=== PATIENT | female | born 1935 | race Caucasian/White ===

== ENCOUNTER → 2016-03-20 | Outpatient (CLI) | payer OTHER ==
[~2016-03-20] MED LIST: ALL60 PO; ASPI81TA28 PO; BCTCR/30 NAE; DILT-117 PO; ESTCR; ESTR0.3T PO; IPRA0.06 NAE; LISI-729 PO; LZL125; MIRA100T PO; MULT-513 PO; RSTOPS OP; SYN100 PO; ZOLE5INJ IV.
--- NOTE | 2016-03-20 16:41 | MAMMOGRAPHY REPORT ---
BILATERAL DIGITAL SCREENING MAMMOGRAM WITH CAD: 03/20/2016 CLINICAL HISTORY: Routine screening. Patient has no complaints. TECHNIQUE: Current study was also evaluated with a Computer Aided Detection (CAD) system. Bilatera l CC and MLO views were obtained. COMPARISON: Comparison is made to exams dated: 03/15/2015 mammogram, 02/17/2013 mammogram, 02/28/2014 mammogram, 01/28/2012 mammogram, 01/22/2011 mammogram, and 01/14/2010 mammogram - [facility]. BREAST COMPOSITION: There are scattered areas of fibroglandular density in both breasts. FINDINGS: No suspicious masses, calcifications, or areas of architectural distortion are noted in e ither breast. There has been no significant interval change compared to prior exams. Scattered bilat eral benign-appearing calcifications are not significantly changed. Circular markers jessica multiple bilateral moles. IMPRESSION: ACR BI-RADS CATEGORY 2: BENIGN There is no mammographic evidence of malignancy. A 1 year screening mammogram is recommended. The p atient will receive written notification of the results. Approximately 10% of breast cancers are not detected with mammography. A negative mammographic repor t should not delay biopsy if a clinically suggestive mass is present. Dalila Metcalf M.D. ah/:03/20/2016 15:24:41 Logistics Engineer: Annie POSADAS(Cale)(M), [facility] letter sent: Normal 1/2 BI-RADS Code: ACR BI-RADS Category 2: Benign
== END | disposition home or self-care (01) ==
LOC: C.MAMM 14:31
PROVIDERS: ATTEND Obstetrics & Gynecology
DX: Z12.31 Encounter for screening mammogram for malignant neoplasm of breast (principal)

== ENCOUNTER → 2016-03-26 | Outpatient (CLI) | payer OTHER | END | disposition home or self-care (01) | LOC: C.LABSPEC 12:37 | PROVIDERS: ATTEND Internal Medicine | DX: K58.9 Irritable bowel syndrome, unspecified (principal) ==

== ENCOUNTER → 2016-04-08 | Outpatient (CLI) | payer OTHER | END | disposition home or self-care (01) | LOC: C.MAMM 11:25 | PROVIDERS: ATTEND Internal Medicine | DX: M81.0 Age-related osteoporosis without current pathological fracture (principal) ==

== ENCOUNTER → 2016-05-14 | Day surgery (SDC) | payer OTHER ==
[~2016-05-14] VITALS: Ht 162.6 cm; Wt 54.0 kg
[~2016-05-14] MED LIST changes: +IBUPROFEN 200 MG TAB ONE; +IBUPROFEN 200 MG TAB PO SCH; +ZOLEDRONIC ACID INJ 5 MG in EMPTY BAG 0 ML IV SCH
[2016-05-14 14:20] VITALS: BP 140/71; PULSE 72; TEMP 36; O2SAT 98; Ht 162.6 cm; Wt 54.0 kg
[2016-05-14 14:41] LABS: CALCIUM 8.2 mg/dl (8.5-10.1); CREATININE 0.68 mg/dl (0.60-1.20)
== END | disposition home or self-care (01) ==
LOC: C.MTU 13:56
PROVIDERS: ATTEND Internal Medicine
DX: M81.0 Age-related osteoporosis without current pathological fracture (principal)

== ENCOUNTER → 2016-06-17 | Outpatient (CLI) | payer OTHER ==
[~2016-06-17] MED LIST changes: -BCTCR/30 NAE; -IBUPROFEN 200 MG TAB ONE; -IBUPROFEN 200 MG TAB PO SCH; -IPRA0.06 NAE; -ZOLEDRONIC ACID INJ 5 MG in EMPTY BAG 0 ML IV SCH
[2016-06-17 09:38] LABS: BASO % 1.5 %; BASO ABS # 0.11 K/uL (0-0.2); COMPLETE YES; EOS % 5.2 %; IG% 0.4 %; LYMPH % 29.4 %; LYMPH ABS # 2.21 K/uL (1.2-3.4); MEAN CELL VOLUME 91.3 fL (80-100); MEAN CORPUSCULAR HEMOGLOBIN 30.8 pg (25-34); MEAN CORPUSCULAR HGB CONC 33.7 g/dl (32-36); MONO % 11.3 %; NEUT % 52.2 %; PLATELET COUNT 374 K/uL (130-400); RED BLOOD COUNT 4.71 M/uL (4.2-5.4); WHITE BLOOD COUNT 7.51 K/uL (4.8-10.8)
[2016-06-17 09:59] LABS: BLOOD UREA NITROGEN 15 mg/dl (7-18); BUN/CREATININE RATIO 21.8 (10-20); CALCIUM 8.9 mg/dl (8.5-10.1); CARBON DIOXIDE 28 mmol/L (21-32); CHLORIDE 102 mmol/L (98-107); CHOLESTEROL 242 mg/dl (0-200); CREATININE 0.69 mg/dl (0.60-1.20); GLUCOSE 88 mg/dl (70-99); SODIUM 138 mmol/L (136-145)
[2016-06-17 10:02] LABS: ESTIMATED AVERAGE GLUCOSE 103 mg/dl; HA1C FLAG Normal (Normal)
[2016-06-17 10:14] LABS: CHOLESTEROL/HDL RATIO 2.4; HDL CHOLESTEROL 99 mg/dl; LDL CHOLESTEROL CALCULATED 127 mg/dl; TRIGLYCERIDES 79 mg/dl (0-150); VERY LOW DENSITY LIPOPROT CALC 16 mg/dl
--- NOTE | 2016-06-30 12:57 | CODING QUERY MEDICAL NECESSITY ---
CQSUPPORTING DIAGNOSIS NEEDED A supporting diagnosis is required for the test/procedure performed on this patient in order for us to be reimbursed by the patient's insurance. Please provide a supporting diagnosis for the following test/procedure listed below next to the test name along with your signature. *If there is no additional diagnosis for this patient that would support the following test/procedure please document that below next to the test/procedure. Test(s)/Procedure(s) that require a supporting diagnosis: DOS 06/17/16 GLYCATED HEMOGLOBIN Provider Signature: Date: Thank you Brigitte Garza Operation [employer] Drop Information Management Once completed, please kindly fax back to [phone] For questions please call [phone]
== END | disposition home or self-care (01) ==
LOC: C.LAB1850 08:05
PROVIDERS: ATTEND Internal Medicine
DX: Z00.00 Encounter for general adult medical examination without abnormal findings (principal); M81.0 Age-related osteoporosis without current pathological fracture; E78.00 Pure hypercholesterolemia, unspecified; R39.9 Unspecified symptoms and signs involving the genitourinary system

== ENCOUNTER → 2016-06-20 | Outpatient (CLI) | payer OTHER ==
[2016-06-20 16:54] LABS: MANUAL MICROSCOPIC REQUIRED? NO; REVIEW REQ? NO; URINE APPEARANCE TURBID (CLEAR); URINE BILIRUBIN NEG (NEG); URINE COLOR DK YELLOW; URINE EPITHELIAL CELL AUTO >30 /lpf (0-5); URINE NITRITE NEG (NEG); URINE PH 5.5 (4.5-7.5); URINE SPECIFIC GRAVITY 1.023 (1.000-1.030); UROBILINOGEN NEG (NEG)
--- NOTE | 2016-06-27 10:15 | CODING QUERY MEDICAL NECESSITY ---
CQSUPPORTING DIAGNOSIS NEEDED A supporting diagnosis is required for the test/procedure performed on this patient in order for us to be reimbursed by the patient's insurance. Please provide a supporting diagnosis for the following test/procedure listed below next to the test name along with your signature. *If there is no additional diagnosis for this patient that would support the following test/procedure please document that below next to the test/procedure. Test(s)/Procedure(s) that require a supporting diagnosis: DOS 06/20/16 URINE CULTURE TEST Provider Signature: Date: Thank you Brigitte Garza Health Information Management Once completed, please kindly fax back to [phone] For questions please call [phone]
== END | disposition home or self-care (01) ==
LOC: C.LAB1850 15:18
PROVIDERS: ATTEND Internal Medicine
DX: E78.00 Pure hypercholesterolemia, unspecified (principal); I10 Essential (primary) hypertension; N39.0 Urinary tract infection, site not specified

== ENCOUNTER → 2016-07-16 | Outpatient (CLI) | payer OTHER ==
[2016-07-16 15:29] LABS: URINE APPEARANCE CLEAR (CLEAR); URINE BILIRUBIN NEG (NEG); URINE COLOR YELLOW; URINE EPITHELIAL CELL AUTO 20-30 /lpf (0-5); URINE NITRITE NEG (NEG); URINE SPECIFIC GRAVITY 1.014 (1.000-1.030); UROBILINOGEN NEG (NEG)
[2016-07-16 15:34] LABS: MANUAL MICROSCOPIC REQUIRED? NO; REVIEW REQ? NO
== END | disposition home or self-care (01) ==
LOC: C.LAB1850 09:15
PROVIDERS: ATTEND Internal Medicine
DX: R39.9 Unspecified symptoms and signs involving the genitourinary system (principal)

== ENCOUNTER → 2016-07-18 | Outpatient (CLI) | payer OTHER | END | disposition home or self-care (01) | LOC: C.LABSPEC 10:50 | PROVIDERS: ATTEND Obstetrics & Gynecology | DX: N81.10 Cystocele, unspecified (principal) ==

== ENCOUNTER → 2016-08-28 | Outpatient (CLI) | payer OTHER ==
--- NOTE | 2016-08-28 10:09 | DIAGNOSTIC IMAGING REPORT ---
ULTRASOUND RIGHT UPPER QUADRANT ABDOMEN CLINICAL HISTORY: Right upper quadrant abdominal pain. COMPARISON STUDY: Abdominal CT dated 06/08/2013. TECHNIQUE: Real-time, grayscale, and color flow sonography of the right upper quadrant of the abdomen was performed. Images are reviewed in the transverse and longitudinal planes. FINDINGS: Liver: The liver is normal in size and echotexture. There is no intrahepatic biliary ductal dilatation. The main portal vein is patent. Gallbladder: The gallbladder is normal in appearance. No gallstones are identified. There is no gallbladder wall thickening or pericholecystic fluid. A sonographic Marion's sign is reportedly absent. The common bile duct measures up to 0.4 cm in diameter. Pancreas: Visualized portions of the pancreatic head and body are normal in appearance. Right kidney: Survey images of the right kidney demonstrate mild cortical atrophy. There is no hydronephrosis. Ascites: None. IMPRESSION: No acute sonographic abnormality is identified in the right upper quadrant. No gallstones are seen. Electronically signed by: Vargas Patel M.D. 08/28/2016 10:08 AM Dictated Date/Time: 08/28/2016 10:05 AM
== END | disposition home or self-care (01) ==
LOC: C.ULTR 09:37
PROVIDERS: ATTEND Physician Assistant
DX: R10.9 Unspecified abdominal pain (principal)

== ENCOUNTER → 2016-09-03 | Outpatient (CLI) | payer OTHER ==
[2016-09-03 14:59] LABS: URINE APPEARANCE CLEAR (CLEAR); URINE BILIRUBIN NEG (NEG); URINE COLOR YELLOW; URINE EPITHELIAL CELL AUTO 20-30 /lpf (0-5); URINE NITRITE POS (NEG); URINE PH 6.5 (4.5-7.5); URINE SPECIFIC GRAVITY 1.013 (1.000-1.030); UROBILINOGEN NEG (NEG)
[2016-09-03 15:06] LABS: MANUAL MICROSCOPIC REQUIRED? NO; REVIEW REQ? NO
== END | disposition home or self-care (01) ==
LOC: C.LABBC 12:17
PROVIDERS: ATTEND Obstetrics & Gynecology
DX: R39.9 Unspecified symptoms and signs involving the genitourinary system (principal)

== ENCOUNTER → 2016-09-19 | Outpatient (CLI) | payer OTHER ==
[2016-09-19 13:38] LABS: URINE APPEARANCE CLOUDY (CLEAR); URINE BILIRUBIN NEG (NEG); URINE COLOR YELLOW; URINE EPITHELIAL CELL AUTO >30 /lpf (0-5); URINE NITRITE NEG (NEG); UROBILINOGEN NEG (NEG)
[2016-09-19 13:44] LABS: MANUAL MICROSCOPIC REQUIRED? NO; REVIEW REQ? NO
== END | disposition home or self-care (01) ==
LOC: C.LABBC 10:57
PROVIDERS: ATTEND Obstetrics & Gynecology
DX: R39.9 Unspecified symptoms and signs involving the genitourinary system (principal)

== ENCOUNTER → 2016-10-23 | Outpatient (CLI) | payer OTHER | END | disposition home or self-care (01) | LOC: C.LABSPEC 17:33 | PROVIDERS: ATTEND Obstetrics & Gynecology | DX: E87.1 Hypo-osmolality and hyponatremia (principal) ==

== ENCOUNTER → 2017-01-26 | Outpatient (CLI) | payer OTHER ==
[2017-01-26 09:41] LABS: BASO % 0.9 %; BASO ABS # 0.07 K/uL (0-0.2); COMPLETE YES; EOS % 4.2 %; HEMATOCRIT 46.1 % (37-47); IG% 0.4 %; LYMPH % 37.2 %; MEAN CORPUSCULAR HEMOGLOBIN 30.3 pg (25-34); MEAN CORPUSCULAR HGB CONC 33.6 g/dl (32-36); MEAN PLATELET VOLUME 10.1 fL (7.4-10.4); MONO % 13.5 %; NEUT % 43.8 %; PLATELET COUNT 357 K/uL (130-400); RED BLOOD COUNT 5.12 M/uL (4.2-5.4); WHITE BLOOD COUNT 7.53 K/uL (4.8-10.8)
[2017-01-26 09:54] LABS: BLOOD UREA NITROGEN 18 mg/dl (7-18); BUN/CREATININE RATIO 28.1 (10-20); CALCIUM 8.7 mg/dl (8.5-10.1); CARBON DIOXIDE 26 mmol/L (21-32); CHLORIDE 100 mmol/L (98-107); CREATININE 0.65 mg/dl (0.60-1.20); GLUCOSE 78 mg/dl (70-99); POTASSIUM 3.5 mmol/L (3.5-5.1); SODIUM 134 mmol/L (136-145)
[2017-01-26 10:06] LABS: ALB/GLOB RATIO 0.9 (0.9-2); ALKALINE PHOSPHATASE 55 U/L (45-117); ALT/SGPT 23 U/L (12-78); AST/SGOT 19 U/L (15-37); CHOLESTEROL 262 mg/dl (0-200); CHOLESTEROL/HDL RATIO 2.4; HDL CHOLESTEROL 109 mg/dl; LDL CHOLESTEROL CALCULATED 136 mg/dl; TRIGLYCERIDES 87 mg/dl (0-150); VERY LOW DENSITY LIPOPROT CALC 17 mg/dl
[2017-01-28 13:33] LABS: GLIADIN DEAMIDATED IgA AB 2 UNITS (<20); GLIADIN DEAMIDATED IgG AB 3 UNITS (<20); RETICULIN IgA AB Negative (Negative)
== END | disposition home or self-care (01) ==
LOC: C.LAB1850 07:43
PROVIDERS: ATTEND Internal Medicine
DX: E78.00 Pure hypercholesterolemia, unspecified (principal)

== ENCOUNTER 2017-03-12 13:02 | Emergency (ER) | payer OTHER ==
[~2017-03-12] VITALS: Ht 162.6 cm; Wt 50.4 kg
[~2017-03-12 13:02] MED LIST changes: -RSTOPS OP; +RSTOPS OPB
[2017-03-12 13:05] VITALS: TEMP 36.8; Ht 162.6 cm; Wt 50.4 kg
--- NOTE | 2017-03-12 14:33 | EMERGENCY ROOM VISIT NOTE ---
History First contact with patient: 14:15 Chief Complaint: COUGH Stated Complaint: CONGESTION, UPPER BACK PAIN WHEN BREATHING Nursing Triage Summary: congestion and left ear infection since 02/23. was on abx. improved. pt now c/o left upper back pain with breathing. reports pain is still there with deep breathing. non productive cough. History of Present Illness The patient is a 81 year old female who presents to the Emergency Room with complaints of congestion and left upper back pain which began last night. The patient states on February 23, she was treated for otitis media and a sinus infection with an antibiotic which "started with a 'C'" for 10 days. She states she has seen her physician facilities assistant and her PCP office twice since this began. She states her upper respiratory infection symptoms have improved, however last evening, she began experiencing left-sided back pain, behind her shoulder blade, worse with breathing. She states she noticed it last night while she was brushing her teeth, however the discomfort lasted throughout the night. It has improved today, and she states her coughing and breathing have improved as well. She states the cough has been mildly productive of yellowish sputum. She denies any fever, nausea, vomiting, ongoing congestion or runny nose, temperature, body aches, dyspnea, chest pain, chest pressure, head or neck pain. She does report occasional chills. The symptoms do not worsen on exertion, however are only present with deep breathing. They're not reproducible with palpation. The patient did get her influenza vaccine this year. She did contact her PCP office, and was advised to come to the emergency department for evaluation, as her PCP did not have any openings until tomorrow. Review of Systems A complete 10 point review of systems was reviewed with the patient with pertinent positives and negatives as per history of present illness. All else were negative. Past Medical/Surgical History Hypothyroidism, osteoporosis, irritable bowel syndrome, arthritis, hypertension Family History No significant family history Social History Smoking Status: Never Smoker Alcohol Use: occasionally Drug Use: none Marital Status: Housing Status: lives with significant other Occupation Status: retired Current/Historical Medications Scheduled Aspirin (Aspirin Ec), 81 MG PO HS Cyclosporine (Restasis Eye Drops), 1 DROP OPB BID Dicyclomine Hcl (Dicyclomine Hcl), 10 MG PO BID Diltiazem Hcl Ext Rel (Tiazac), 300 MG PO DAILY Estradiol Vag 0.01% (Estrace Vag 0.01% ), 3XWK Estrogens, Conjugated (Premarin), 0.3 MG PO 3XWK Indapamide (Indapamide), 5XWK Levofloxacin (Levaquin), 1 TAB PO DAILY Levothyroxine (Synthroid *), 0.1 MG PO DAILY Lisinopril (Zestril), 5 MG PO DAILY Mirabegron (Myrbetriq Er), 50 MG PO HS Multivitamins/Minerals (Mvi With Minerals), 1 TAB PO DAILY Zoledronic Acid (Reclast), 1 DOSE IV. YEARLY Scheduled PRN Fexofenadine Hcl (Edda *), 60 MG PO DAILY PRN for ALLERGIES Physical Exam Vital Signs Date Time Temp Pulse Resp B/P (MAP) Pulse Ox O2 Delivery O2 Flow Rate FiO2 03/12/17 15:49 69 18 109/71 99 03/12/17 13:10 97 Room Air 03/12/17 13:05 36.8 74 18 126/73 97 Room Air Physical Exam VITALS: Vitals are noted on the nurse's note and reviewed by myself. Vital signs stable. GENERAL: This is an 81-year-old white female, in no acute distress, nondiaphoretic, well-developed well-nourished. SKIN: The skin was without rashes, erythema, edema, or bruising. There is no tenting of the skin. Capillary reflex less than 2 seconds. HEAD: Normocephalic atraumatic. EARS: External auditory canals clear, tympanic membranes pearly galloway without erythema or effusion bilaterally. EYES: Pupils equal round and reactive to light and accommodation. Conjunctivae without injection, sclerae without icterus. Extraocular movements intact. NOSE: Patent, turbinates without inflammation or discharge. No sinus tenderness. MOUTH: Mucous membranes moist. Tonsils are not enlarged. Pharynx without erythema or exudate. Uvula midline. Airway patent. Tongue does not deviate. NECK: Supple without nuchal rigidity. No lymphadenopathy. No thyromegaly. Cervical spine is nontender. No JVD. HEART: Regular rate and rhythm without murmurs gallops or rubs. LUNGS: Clear to auscultation bilaterally without wheezes, rales or rhonchi. No dullness to percussion. No retractions or accessory muscle use. ABDOMEN: Positive bowel sounds x 4. Normal tympanic percussion. Soft, nontender, without masses or organomegaly. Marion sign negative. No guarding or rebound tenderness. MUSCULOSKELETAL: No muscle atrophy, erythema, or edema noted. Full range of motion without joint tenderness in all extremities. No tenderness to palpation. Normal gait. Strength 5/5 throughout. NEURO: Patient was alert and oriented to person place and time. Normal sensation to light and sharp touch. Deep tendon reflexes 2+ throughout. No focal neurological deficits. Medical Decision & Procedures ER Provider Diagnostic Interpretation: CHEST 2 VIEWS ROUTINE CLINICAL HISTORY: cough, left chest pain COMPARISON STUDY: 08/16/2013 FINDINGS: The cardiac and mediastinal contours remain stable. Since the prior study, the patient has developed a 3 cm left midlung zone opacity, likely located in the left upper lobe. Also evident are right perihilar airspace opacities which were not present on the prior study. Given the history of cough and congestion, these may be inflammatory. Short-term radiographic follow-up subsequent to antibiotic therapy is recommended. The patient remains mildly hyperinflated. IMPRESSION: 1. Interval development of a 3 cm left midlung zone nodular opacity 2. Interval development of right perihilar airspace opacities 3. Although nonspecific, given the clinical history of cough and congestion these lesions may be inflammatory. Short-term radiographic follow-up subsequent to antibiotic therapy is recommended Electronically signed by: Jovi Rosenthal M.D. 03/12/2017 2:54 PM Dictated Date/Time: 03/12/2017 2:51 PM Medications Administered Medications (Trade) Dose Ordered Sig/Chitra Route Start Time Stop Time Status Last Admin Dose Admin Levofloxacin (Levaquin Tab) 750 mg NOW STAT PO 03/12/17 15:20 03/12/17 15:23 DC 03/12/17 15:45 750 MG ED Course The patient was seen and evaluated as above. Chest x-ray ordered and performed. I discussed the case with Dr. Lew, who did see and evaluate the patient. The patient will be treated for possible pneumonia. She was given her first dose of Levaquin here in the ED. Discharge instructions reviewed, the patient was discharged home in good condition. Medical Decision This is an 81-year-old female patient presents to the emergency department today complaining of cough and posterior back pain, only with deep breathing, and located near the left shoulder blade. The patient has been sick with cough , congestion, and an ear infection for the past 3 weeks. She was recently treated with clindamycin for these complaints. She states the back pain began last night, and was worse overnight at bedtime. Chest x-ray was significant for opacities in the left midlung and right perihilar space, which, with the patient's symptoms, is consistent with pneumonia. The patient will be treated with by mouth antibiotics at this time, as she overall does not appear ill. Dr. Lew did see and evaluate the patient, and is in agreement with the assessment and plan. The patient will follow up closely with her PCP, and she does have an appointment scheduled for tomorrow. Etiologies such as pneumonia, bronchitis, influenza, cardiac ischemia, aortic dissection, pulmonary embolism, pneumothorax, musculoskeletal, infections, gastrointestinal, as well as others were entertained. Medication Reconcilliation Current Medication List: was personally reviewed by me Blood Pressure Screening Patient's blood pressure: Normal blood pressure Impression Primary Impression: Pneumonia Departure Information Dispostion Home / Self-Care Condition GOOD Prescriptions Levofloxacin (LEVAQUIN) 750 Mg Tab 1 TAB PO DAILY for 5 Days, #5 TAB Prov: Bety Sousa PA-C 03/12/17 Referrals Sae Choudhury M.D. (PCP) Patient Instructions ED Pneumonia Adult, My [facility] Additional Instructions You were seen and evaluated in the emergency department today for a cough and left back pain. Chest x-ray was positive for pneumonia on the mid-left lung zone and opacities on the right lower lobe. You were prescribed Levaquin to be taken as directed. This is an antibiotic. All antibiotics have the potential to cause diarrhea. Stop this medication and contact a medical provider if you were to develop any significant adverse side effects including: wheezing, shortness of breath, passing out, vomiting, or a diffuse rash. Always take antibiotics as directed and COMPLETE the ENTIRE course regardless of the improvement of your symptoms. You may use OTC Tylenol and/or ibuprofen to help with pain. Please follow up with your primary care provider tomorrow for recheck and further evaluation. You should have a follow-up CXR performed in approximately 2-4 weeks for evaluation of the inflammatory changes in the lungs. Return to the emergency department for difficulty breathing, coughing up blood, worsening fever, chills, chest pain, or other concerning symptoms. Problem Qualifiers Primary Impression: Pneumonia Pneumonia type: due to unspecified organism Laterality: bilateral Lung location: lower lobe of lung Qualified Codes: J18.9 - Pneumonia, unspecified organism
--- NOTE | 2017-03-12 14:55 | DIAGNOSTIC IMAGING REPORT ---
CHEST 2 VIEWS ROUTINE CLINICAL HISTORY: cough, left chest pain COMPARISON STUDY: 08/16/2013 FINDINGS: The cardiac and mediastinal contours remain stable. Since the prior study, the patient has developed a 3 cm left midlung zone opacity, likely located in the left upper lobe. Also evident are right perihilar airspace opacities which were not present on the prior study. Given the history of cough and congestion, these may be inflammatory. Short-term radiographic follow-up subsequent to antibiotic therapy is recommended. The patient remains mildly hyperinflated. IMPRESSION: 1. Interval development of a 3 cm left midlung zone nodular opacity 2. Interval development of right perihilar airspace opacities 3. Although nonspecific, given the clinical history of cough and congestion these lesions may be inflammatory. Short-term radiographic follow-up subsequent to antibiotic therapy is recommended Electronically signed by: Jovi Rosenthal M.D. 03/12/2017 2:54 PM Dictated Date/Time: 03/12/2017 2:51 PM
[2017-03-12] MEDS ORDERED: DICY10CA12 PO (14:57)
[2017-03-12] MEDS ORDERED: LEVOFLOXACIN 750 MG TAB PO STA (15:20)
--- NOTE | 2017-03-12 15:20 | EMERGENCY ROOM VISIT NOTE ---
ED Visit Note First contact with patient: 14:15 Patient was seen by our PA/DIMENSIONAL INSPECTOR. I was involved in the patient's care and did evaluate the patient myself. I was involved in the care throughout the ER stay. The patient presents with cough. She also has had some discomfort she thought coming from her lungs. Chest film does show pneumonia. She is not hypoxic, she is not toxic, her lungs do sound clear on exam. She is being discharged on Levaquin. She will see her doctor tomorrow for a recheck and return here if worsening.
[2017-03-12] MEDS ORDERED: LEVO-18 PO (15:25)
[2017-03-12 15:49] VITALS: BP 109/71; PULSE 69; O2SAT 99
== END 2017-03-12 15:51 | disposition home or self-care (01) ==
LOC: C.EDB 13:04 → C.EDD 15:51
DX: J18.9 Pneumonia, unspecified organism (principal); E03.9 Hypothyroidism, unspecified; M81.0 Age-related osteoporosis without current pathological fracture; K58.9 Irritable bowel syndrome, unspecified; I10 Essential (primary) hypertension; M19.90 Unspecified osteoarthritis, unspecified site; Z79.82 Long term (current) use of aspirin; Z79.899 Other long term (current) drug therapy

== ENCOUNTER → 2017-03-20 | Outpatient (CLI) | payer OTHER ==
[~2017-03-20] MED LIST changes: +DICY10CA12 PO
--- NOTE | 2017-03-20 13:36 | DIAGNOSTIC IMAGING REPORT ---
CHEST 2 VIEWS ROUTINE CLINICAL HISTORY: J18.9 [id number] pneumonia COMPARISON STUDY: 03/12/2017 FINDINGS: Improved exam. The peripheral midlung density on the left is considerably diminished in size with a current maximum transverse dimension 2.7 cm with superior/inferior dimension The right perihilar infiltrative changes have diminished in terms of density could geographically similar in overall extent. Emphysematous change and chronic diaphragmatic scarring are unaltered. improved by 50%. This would indicate a 50-70% improvement in volume. IMPRESSION: Improved exam with a decrease in density and/or size of the parenchymal infiltrative changes in the left as well as right lung regions as described. Continued follow-up to ensure complete resolution is suggested. The above report was generated using voice recognition software. It may contain grammatical, syntax or spelling errors. Electronically signed by: Antonio Schreiber M.D. 03/20/2017 1:35 PM Dictated Date/Time: 03/20/2017 1:32 PM
== END | disposition home or self-care (01) ==
LOC: C.RAD1850 13:21
PROVIDERS: ATTEND Physician Assistant Medical
DX: J18.9 Pneumonia, unspecified organism (principal)

== ENCOUNTER → 2017-04-10 | Outpatient (CLI) | payer OTHER ==
--- NOTE | 2017-04-13 14:50 | MAMMOGRAPHY REPORT ---
BILATERAL DIGITAL SCREENING MAMMOGRAM TOMOSYNTHESIS WITH CAD: 04/10/2017 CLINICAL HISTORY: Routine screening. TECHNIQUE: Breast tomosynthesis in addition to standard 2D mammography was performed. Current study was also evaluated with a Computer Aided Detection (CAD) system. COMPARISON: Comparison is made to exams dated: 03/20/2016 mammogram, 03/15/2015 mammogram, 02/28/2014 ma mmogram, 02/17/2013 mammogram, 01/28/2012 mammogram, and 01/22/2011 mammogram - [facility]. BREAST COMPOSITION: There are scattered areas of fibroglandular density in both breasts. FINDINGS: No suspicious masses, calcifications, or areas of architectural distortion are noted in ei ther breast. There has been no significant interval change compared to prior exams. IMPRESSION: ACR BI-RADS CATEGORY 1: NEGATIVE There is no mammographic evidence of malignancy. A 1 year screening mammogram is recommended. The pa tient will receive written notification of the results. Approximately 10% of breast cancers are not detected with mammography. A negative mammographic report should not delay biopsy if a clinically suggestive mass is present. Dalila Metcalf M.D. ah/:04/10/2017 15:15:11 Mica Laminating Machine Feeder: Desmond POSADAS(Cale)(M), [facility] letter sent: Normal 1/2 BI-RADS Code: ACR BI-RADS Category 1: Negative
== END | disposition home or self-care (01) ==
LOC: C.MAMM 14:15
PROVIDERS: ATTEND Obstetrics & Gynecology
DX: Z12.31 Encounter for screening mammogram for malignant neoplasm of breast (principal)

== ENCOUNTER → 2017-04-24 | Outpatient (CLI) | payer OTHER ==
--- NOTE | 2017-04-24 15:06 | DIAGNOSTIC IMAGING REPORT ---
CHEST 2 VIEWS ROUTINE CLINICAL HISTORY: J18.9 Pneumonia COMPARISON STUDY: 03/20/2017 FINDINGS: The cardiac and mediastinal contours remain stable. Underlying emphysema is suspected. There is a stable linear peripheral left midlung zone opacity measuring 29 x 5 mm. There is a stable right midlung zone opacity. There is stable blunting of the right lateral costophrenic angle.[ IMPRESSION: No significant change from the preceding study. Stable left midlung zone opacity, likely representing a resolving pneumonia/postinflammatory scar. Stable right midlung zone opacity, also likely representing a resolving pneumonia/postinflammatory scar. Electronically signed by: Jovi Rosenthal M.D. 04/24/2017 3:04 PM Dictated Date/Time: 04/24/2017 3:00 PM
== END | disposition home or self-care (01) ==
LOC: C.RAD1850 14:53
PROVIDERS: ATTEND Physician Assistant Medical
DX: J18.9 Pneumonia, unspecified organism (principal)

== ENCOUNTER → 2017-06-29 | Outpatient (CLI) | payer OTHER ==
[2017-06-29 15:24] LABS: BASO % 0.6 %; BASO ABS # 0.06 K/uL (0-0.2); EOS % 1.3 %; EOS ABS # 0.13 K/uL (0-0.5); HEMATOCRIT 44.5 % (37-47); HEMOGLOBIN 15.7 g/dL (12.0-16.0); IG# 0.02 K/uL (0.00-0.02); LYMPH ABS # 2.16 K/uL (1.2-3.4); MEAN CELL VOLUME 87.1 fL (80-100); MEAN CORPUSCULAR HEMOGLOBIN 30.7 pg (25-34); MEAN CORPUSCULAR HGB CONC 35.3 g/dl (32-36); MEAN PLATELET VOLUME 9.5 fL (7.4-10.4); MONO ABS # 1.18 K/uL (0.11-0.59); NEUT % 63.9 %; NEUT ABS # 6.28 K/uL (1.4-6.5); PLATELET COUNT 357 K/uL (130-400); RED CELL DISTRIBUTION WIDTH CV 14.3 % (11.5-14.5); RED CELL DISTRIBUTION WIDTH SD 45.4 fL (36.4-46.3); WHITE BLOOD COUNT 9.83 K/uL (4.8-10.8)
[2017-06-29 15:57] LABS: BLOOD UREA NITROGEN 16 mg/dl (7-18); CALCIUM 8.8 mg/dl (8.5-10.1); CARBON DIOXIDE 26 mmol/L (21-32); CREATININE 0.74 mg/dl (0.60-1.20); GLUCOSE 106 mg/dl (70-99); SODIUM 130 mmol/L (136-145)
== END | disposition home or self-care (01) ==
LOC: C.LAB1850 14:38
PROVIDERS: ATTEND Internal Medicine
DX: E78.00 Pure hypercholesterolemia, unspecified (principal)

== ENCOUNTER → 2017-07-06 | Outpatient (CLI) | payer OTHER | END | disposition home or self-care (01) | LOC: C.LABSPEC 12:18 | PROVIDERS: ATTEND Obstetrics & Gynecology | DX: R39.9 Unspecified symptoms and signs involving the genitourinary system (principal); N76.0 Acute vaginitis ==

== ENCOUNTER → 2017-07-10 | Outpatient (CLI) | payer OTHER | END | disposition home or self-care (01) | LOC: C.LABBC 10:44 | PROVIDERS: ATTEND Obstetrics & Gynecology | DX: R39.9 Unspecified symptoms and signs involving the genitourinary system (principal) ==

== ENCOUNTER → 2017-10-06 | Outpatient (CLI) | payer OTHER | END | disposition home or self-care (01) | LOC: C.LABSPEC 13:15 | PROVIDERS: ATTEND Obstetrics & Gynecology | DX: N81.10 Cystocele, unspecified (principal); J18.9 Pneumonia, unspecified organism ==

== ENCOUNTER 2017-10-20 11:04 | Emergency (ER) | payer OTHER ==
[~2017-10-20] VITALS: Ht 162.6 cm; Wt 50.6 kg
[2017-10-20 11:08] VITALS: TEMP 36.4; Ht 162.6 cm; Wt 50.6 kg
[2017-10-20 11:33] VITALS: O2SAT 99
[2017-10-20] MEDS ORDERED: SYN100 PO (11:41)
[2017-10-20] MEDS ORDERED: SODIUM CHLORIDE 0.9% 1000ML 1,000 ML IV STA (11:44)
[2017-10-20 11:59] LABS: BASO % 0.5 %; BASO ABS # 0.04 K/uL (0-0.2); EOS % 0.7 %; EOS ABS # 0.06 K/uL (0-0.5); HEMATOCRIT 42.8 % (37-47); HEMOGLOBIN 14.9 g/dL (12.0-16.0); IG# 0.03 K/uL (0.00-0.02); LYMPH % 23.6 %; LYMPH ABS # 2.03 K/uL (1.2-3.4); MEAN CELL VOLUME 86.3 fL (80-100); MEAN CORPUSCULAR HGB CONC 34.8 g/dl (32-36); MEAN PLATELET VOLUME 9.8 fL (7.4-10.4); MONO % 9.3 %; NEUT % 65.6 %; NEUT ABS # 5.63 K/uL (1.4-6.5); PLATELET COUNT 389 K/uL (130-400); RED CELL DISTRIBUTION WIDTH CV 15.4 % (11.5-14.5); RED CELL DISTRIBUTION WIDTH SD 48.5 fL (36.4-46.3); WHITE BLOOD COUNT 8.59 K/uL (4.8-10.8)
--- NOTE | 2017-10-20 12:15 | EMERGENCY ROOM VISIT NOTE ---
History Report prepared by Herman: [facility] Under the Supervision of: Dr. Jackie Hoyt M.D. First contact with patient: 11:24 Chief Complaint: TACHYCARDIA Stated Complaint: HIGH PULSE READINGS Nursing Triage Summary: pt reports she checked bp when awoke this am had pulse of 150 then last couple times checked pulse was 91 and 92. called pcp told to come to ed denies any chest pain or sob, just feels tired History of Present Illness The patient is a 81 year old female who presents to the Emergency Room with complaints of resolved rapid pulse beginning this morning. The patient reports that this morning, she measured her pulse to be 150 bpm. She notes that she is unsure if the rhythm was regular or irregular. She states that she called her doctor and was told to report to the ER. She reports that her pulse has decreased since the first measurement, being measured at about 91 and 92 bpm for the past couple measurements. The patient denies chest pain or shortness of breath, but notes that she feels weak. She states that she ate yogurt and blueberries this morning. She reports that she regularly takes aspirin. She notes that she was experiencing diarrhea this morning. Source of History: patient Onset: this morning Position: other (heart) Symptom Intensity: 150 this morning Quality: other (high pulse) Timing: resolved Associated Symptoms: + diarrhea, + weakness, No chest pain, No SOB Review of Systems See HPI for pertinent positives & negatives. A total of 10 systems reviewed and were otherwise negative. Past Medical & Surgical Medical Problems: (1) Bronchitis (2) Hypertension (3) Osteoporosis (4) Stomach problems (5) Urinary problem Family History Cancer Diabetes mellitus Heart disease Hypertension Social History Smoking Status: Never Smoker Alcohol Use: occasionally Drug Use: none Marital Status: Housing Status: lives with significant other Occupation Status: retired Current/Historical Medications Scheduled Aspirin (Aspirin Ec), 81 MG PO HS Ciprofloxacin Tab (Cipro), 250 MG PO BID Dicyclomine Hcl (Dicyclomine Hcl), 10 MG PO BID Diltiazem Hcl Ext Rel (Tiazac), 300 MG PO DAILY Estrogens, Conjugated (Premarin), 0.3 MG PO 3XWK Indapamide (Indapamide), 5XWK Levothyroxine Sodium (Synthroid), 100 MCG PO DAILY Lisinopril (Zestril), 5 MG PO DAILY Mirabegron (Myrbetriq Er), 50 MG PO HS Multivitamins/Minerals (Mvi With Minerals), 1 TAB PO DAILY Potassium Ext Rel (Klor-Con), 20 MEQ PO DAILY Zoledronic Acid (Reclast), 1 DOSE IV. YEARLY Allergies Coded Allergies: POLLEN (Verified Allergy, Unknown, 10/20/17) Guaifenesin (Verified Adverse Reaction, Intermediate, nausea, 10/20/17) Hydrocodone (Verified Adverse Reaction, Intermediate, nausea, 10/20/17) Metronidazole (Verified Adverse Reaction, Intermediate, nausea, 10/20/17) Phenylephrine (Verified Adverse Reaction, Intermediate, nausea, 10/20/17) Physical Exam Vital Signs Date Time Temp Pulse Resp B/P (MAP) Pulse Ox O2 Delivery O2 Flow Rate FiO2 10/20/17 14:45 77 18 128/74 98 Room Air 10/20/17 13:53 78 18 148/84 98 Room Air 10/20/17 12:30 71 18 142/83 98 Room Air 10/20/17 11:33 99 Room Air 10/20/17 11:32 78 18 163/90 99 Room Air 10/20/17 11:31 77 10/20/17 11:08 36.4 88 18 154/85 98 Room Air Physical Exam Vital signs reviewed. General: Well-appearing female, in no significant distress. HEENT: No scleral icterus, PERRLA, neck supple. Atraumatic. Cardiovascular: Regular rate and rhythm, no extra sounds. Pulmonary: Clear to auscultation bilaterally, normal work of breathing. Abdomen: Soft, nontender, nondistended, positive bowel sounds. Musculoskeletal: Atraumatic, no peripheral edema. Neurologic: Patient awake alert and oriented x 3 Skin: Warm, dry, no rash Medical Decision & Procedures ER Provider Diagnostic Interpretation: Radiology results as stated below per my review and radiologist interpretation: CHEST ONE VIEW PORTABLE CLINICAL HISTORY: tachycardia dyspnea COMPARISON STUDY: 04/24/2017 FINDINGS: Mild emphysematous change. Diaphragms are smooth. Lungs are clear. IMPRESSION: No acute process. Mild emphysematous change. The above report was generated using voice recognition software. It may contain grammatical, syntax or spelling errors. Electronically signed by: Antonio Schreiber M.D. 10/20/2017 12:18 PM Dictated Date/Time: 10/20/2017 12:17 PM Laboratory Results 10/20/17 11:26 Red Blood Count 4.96, Mean Corpuscular Volume 86.3, Mean Corpuscular Hemoglobin 30.0, Mean Corpuscular Hemoglobin Concent 34.8, Mean Platelet Volume 9.8, Neutrophils (%) (Auto) 65.6, Lymphocytes (%) (Auto) 23.6, Monocytes (%) (Auto) 9.3, Eosinophils (%) (Auto) 0.7, Basophils (%) (Auto) 0.5, Neutrophils # (Auto) 5.63, Lymphocytes # (Auto) 2.03, Monocytes # (Auto) 0.80, Eosinophils # (Auto) 0.06, Basophils # (Auto) 0.04 10/20/17 11:26 Test 10/20/17 11:26 10/20/17 12:00 White Blood Count 8.59 K/uL (4.8-10.8) Red Blood Count 4.96 M/uL (4.2-5.4) Hemoglobin 14.9 g/dL (12.0-16.0) Hematocrit 42.8 % (37-47) Mean Corpuscular Volume 86.3 fL (80-100) Mean Corpuscular Hemoglobin 30.0 pg (25-34) Mean Corpuscular Hemoglobin Concent 34.8 g/dl (32-36) Platelet Count 389 K/uL (130-400) Mean Platelet Volume 9.8 fL (7.4-10.4) Neutrophils (%) (Auto) 65.6 % Lymphocytes (%) (Auto) 23.6 % Monocytes (%) (Auto) 9.3 % Eosinophils (%) (Auto) 0.7 % Basophils (%) (Auto) 0.5 % Neutrophils # (Auto) 5.63 K/uL (1.4-6.5) Lymphocytes # (Auto) 2.03 K/uL (1.2-3.4) Monocytes # (Auto) 0.80 K/uL (0.11-0.59) Eosinophils # (Auto) 0.06 K/uL (0-0.5) Basophils # (Auto) 0.04 K/uL (0-0.2) RDW Standard Deviation 48.5 fL (36.4-46.3) RDW Coefficient of Variation 15.4 % (11.5-14.5) Immature Granulocyte % (Auto) 0.3 % Immature Granulocyte # (Auto) 0.03 K/uL (0.00-0.02) Prothrombin Time 10.7 SECONDS (9.0-12.0) Prothromb Time International Ratio 1.0 (0.9-1.1) Activated Partial Thromboplast Time 28.0 SECONDS (21.0-31.0) Partial Thromboplastin Ratio 1.1 Anion Gap 12.0 mmol/L (3-11) Est Creatinine Clear Calc Drug Dose 57.8 ml/min Estimated GFR () 98.7 Estimated GFR (Non- 85.2 BUN/Creatinine Ratio 31.0 (10-20) Calcium Level 8.8 mg/dl (8.5-10.1) Phosphorus Level 3.3 mg/dl (2.5-4.9) Magnesium Level 1.9 mg/dl (1.8-2.4) Total Bilirubin 0.4 mg/dl (0.2-1) Direct Bilirubin 0.1 mg/dl (0-0.2) Aspartate Amino Transf (AST/SGOT) 24 U/L (15-37) Alanine Aminotransferase (ALT/SGPT) 21 U/L (12-78) Alkaline Phosphatase 106 U/L (45-117) Troponin I < 0.015 ng/ml (0-0.045) Total Protein 7.4 gm/dl (6.4-8.2) Albumin 3.3 gm/dl (3.4-5.0) Thyroid Stimulating Hormone (TSH) 0.364 uIu/ml (0.300-4.500) Urine Color YELLOW Urine Appearance CLOUDY (CLEAR) Urine pH 7.5 (4.5-7.5) Urine Specific [place] 1.014 (1.000-1.030) Urine Protein NEG (NEG) Urine Glucose (UA) NEG (NEG) Urine Ketones NEG (NEG) Urine Occult Blood NEG (NEG) Urine Nitrite NEG (NEG) Urine Bilirubin NEG (NEG) Urine Urobilinogen NEG (NEG) Urine Leukocyte Esterase MODERATE (NEG) Urine WBC (Auto) 10-30 /hpf (0-5) Urine RBC (Auto) 0-4 /hpf (0-4) Urine Hyaline Casts (Auto) 1-5 /lpf (0-5) Urine Epithelial Cells (Auto) >30 /lpf (0-5) Urine Bacteria (Auto) 2+ (NEG) Laboratory results per my review. Medications Administered Medications (Trade) Dose Ordered Sig/Chitra Route Start Time Stop Time Status Last Admin Dose Admin Sodium Chloride 1,000 ml @ 125 mls/hr Q8H STAT IV 10/20/17 11:44 10/20/17 15:25 DC 10/20/17 12:52 125 MLS/HR Potassium Chloride (Nguyen Ciel Elix) 40 meq NOW STAT PO 10/20/17 12:31 10/20/17 12:32 DC 10/20/17 12:52 40 MEQ Ciprofloxacin (Cipro Tab) 250 mg NOW STAT PO 10/20/17 14:58 10/20/17 15:00 DC 10/20/17 14:58 250 MG ECG Per My Interpretation Indication: other (elevated pulse) Rate (beats per minute): 86 Rhythm: normal sinus Findings: no acute ischemic change, no ectopy ED Course 1142: Past medical records reviewed. The patient was evaluated in room C9. A complete history and physical examination was performed. 1428: I reevaluated the patient and discussed findings with her. She verbalized agreement of the treatment plan. The patient was discharged home. Medical Decision Differential diagnosis: Etiologies such as premature contractions, electrolyte abnormality, cardiac dysrhythmia, thyroid dysfunction, pulmonary embolism, infection, gastrointestinal, as well as others were entertained. This patient was evaluated and appeared to be in no significant distress. Patient's physical exam is fairly unrevealing. IV access was obtained and she was placed on director risk. No arrhythmia or ectopy was appreciated during her stay. Laboratory work does reveal mild hyponatremia which is consistent with the patient's baseline. She is also noted to be mildly hypokalemic which is also a bit chronic. Given her complaints of tachycardia, I feel it is in her best interest to replete the potassium. She was given 40 mEq of p.o. potassium for level of 3.3. She was given a prescription for 20 mEq daily. The patient is on indapamide chronically. Patient was set up with a 24-hour Holter monitor through the cardiopulmonary lab. She was discharged to the care of her and will follow closely with Dr. Choudhury, her PCP. She will return to the ED for recurrence of symptoms or any medical concerns. Medication Reconcilliation Current Medication List: was personally reviewed by me Blood Pressure Screening Patient's blood pressure: Elevated blood pressure Blood pressure disposition: Referred to PCP Impression Primary Impression: Tachycardia Additional Impressions: Palpitations Hypokalemia Scribe Attestation The scribe's documentation has been prepared under my direction and personally reviewed by me in its entirety. I confirm that the note above accurately reflects all work, treatment, procedures, and medical decision making performed by me. Departure Information Dispostion Home / Self-Care Prescriptions Ciprofloxacin Tab (Cipro) 250 Mg Tab 250 MG PO BID for 5 Days, #10 TAB Prov: Jackie Hoyt M.D. 10/20/17 Potassium Ext Rel (Klor-Con) 20 Meq Tabcr 20 MEQ PO DAILY for 30 Days, #30 TAB Prov: Jackie Hoyt M.D. 10/20/17 Referrals Sae Choudhury M.D. (PCP) Forms HOME CARE DOCUMENTATION FORM, IMPORTANT VISIT INFORMATION, WORK / SCHOOL INSTRUCTIONS Patient Instructions My [facility] Additional Instructions Diagnosis: Tachycardia, palpitations Please drink plenty of clear fluids. Potassium 20 mEq daily. Cipro 250 mg twice daily for 5 days. Wear the Holter monitor for 48 hours as directed by the cardiopulmonary lab. Follow-up with Dr. Choudhury within 1-2 weeks for reevaluation and consideration of repeat laboratory work. Return to the emergency department for worsening of symptoms, chest pain, lightheadedness or any medical concerns. Problem Qualifiers
[2017-10-20 12:18] LABS: ALBUMIN 3.3 gm/dl (3.4-5.0); ALKALINE PHOSPHATASE 106 U/L (45-117); ALT/SGPT 21 U/L (12-78); AST/SGOT 24 U/L (15-37); BLOOD UREA NITROGEN 19 mg/dl (7-18); CALCIUM 8.8 mg/dl (8.5-10.1); CARBON DIOXIDE 23 mmol/L (21-32); CREATININE 0.62 mg/dl (0.60-1.20); GLUCOSE 96 mg/dl (70-99); POTASSIUM 3.3 mmol/L (3.5-5.1); SODIUM 132 mmol/L (136-145); TOTAL PROTEIN 7.4 gm/dl (6.4-8.2)
--- NOTE | 2017-10-20 12:19 | DIAGNOSTIC IMAGING REPORT ---
CHEST ONE VIEW PORTABLE CLINICAL HISTORY: tachycardia dyspnea COMPARISON STUDY: 04/24/2017 FINDINGS: Mild emphysematous change. Diaphragms are smooth. Lungs are clear. IMPRESSION: No acute process. Mild emphysematous change. The above report was generated using voice recognition software. It may contain grammatical, syntax or spelling errors. Electronically signed by: Antonio Schreiber M.D. 10/20/2017 12:18 PM Dictated Date/Time: 10/20/2017 12:17 PM
[2017-10-20] MEDS ORDERED: POTASSIUM CHLORIDE 20 MEQ/15 ML UDC PO STA (12:31)
[2017-10-20] MEDS ORDERED: POTA-639 PO (14:34)
[2017-10-20 14:45] VITALS: BP 128/74; PULSE 77; O2SAT 98
[2017-10-20] MEDS ORDERED: CIPROFLOXACIN 500 MG TAB PO STA (14:58)
[2017-10-20] MEDS ORDERED: CIPR1TAB11 PO (15:00)
--- NOTE | 2017-10-22 12:22 | Pharmacy Progress Note ---
ED Pharmacist Culture FollowUp Date of Service: Oct 22, 2017. Patient was sent home with a prescription for ciprofloxacin 250 mg BID x 5 days , which should cover the klebsiella growing from the patient's urine culture.
== END 2017-10-20 14:46 | disposition home or self-care (01) ==
LOC: C.EDB 11:05 → C.EDC 14:46
DX: R00.0 Tachycardia, unspecified (principal); R00.2 Palpitations; E87.6 Hypokalemia; I10 Essential (primary) hypertension; Z79.82 Long term (current) use of aspirin; Z79.899 Other long term (current) drug therapy; Z88.8 Allergy status to other drugs, medicaments and biological substances; Z88.5 Allergy status to narcotic agent; Z91.048 Other nonmedicinal substance allergy status

== ENCOUNTER 2018-04-04 16:06 | Inpatient (IN) ==
[2018-04-04] MEDS ORDERED: SODIUM CHLORIDE 0.9% 1000ML 1,000 ML IV SCH (17:00)
[2018-04-04 17:07] LABS: Basophils # (auto) 0.07 K/uL (0-0.2); Basophils % (auto) 0.5 %; Eosinophils # (auto) 0.07 K/uL (0-0.5); Eosinophils % (auto) 0.5 %; Hematocrit (blood only) 36.8 % (37-47); Hemoglobin 12.4 g/dL (12.0-16.0); Immature Granulocytes % (auto) 0.7 %; Lymphocytes # (auto) 2.79 K/uL (1.2-3.4); Lymphocytes % (auto) 18.4 %; Mean Corpuscular Hgb Conc 33.7 g/dL (32-36); Mean Corpuscular Volume 85.6 fL (80-100); Mean Platelet Volume 9.1 fL (7.4-10.4); Monocytes # (auto) 1.32 K/uL (0.11-0.59); Monocytes % (auto) 8.7 %; Neutrophils # (auto) 10.85 K/uL (1.4-6.5); Neutrophils % (auto) 71.2 %; Platelet Count 617 K/uL (130-400); RDW Coefficient of Variation 16.2 % (11.5-14.5); RDW Standard Deviation 50.5 fL (36.4-46.3)
--- NOTE | 2018-04-04 17:09 | XRay Report ---
XR chest 1V portable CLINICAL HISTORY: Chest Pain COMPARISON STUDY: Chest radiograph March 31, 2018. FINDINGS: There is no pneumothorax or pleural effusion. There is no consolidation to suggest pneumoni a. Cardiac size is normal. Mediastinal contours are normal. There is no evidence for pulmonary edema. The appearance of the chest is unchanged. IMPRESSION: No acute cardiopulmonary findings. Electronically signed by: Jeromy Mcleod M.D. 04/04/2018 5:08 PM
[2018-04-04 17:16] LABS: INR 1.1 (0.9-1.1); Partial Thromboplastin Time 26.1 Seconds (21.0-31.0); Prothrombin Time 11.1 Seconds (9.0-12.0)
[2018-04-04 17:23] LABS: Albumin Level 2.8 gm/dl (3.4-5.0); BUN Creatinine Ratio 46.8 (10-20); Calcium 8.5 mg/dl (8.5-10.1); Creatinine Clr Calc Pharmacy 39.2 ml/min; Est GFR (African American) 72.4; Est GFR (Non-African American) 62.5; Magnesium 1.8 mg/dl (1.8-2.4); Potassium 3.4 mmol/L (3.5-5.1)
[2018-04-04 17:26] LABS: Albumin Globulin Ratio 0.7 (0.9-2); Bilirubin,Total 0.6 mg/dl (0.2-1); Globulin 4.2 gm/dl (2.5-4.0)
[2018-04-04 17:35] LABS: iSTAT Creatinine 0.6 mg/dl (0.6-1.3); iSTAT Hemoglobin 10.9 g/dl (12.0-16.0); iSTAT Ionized Calcium 1.02 mmol/l (1.12-1.32); iSTAT Potassium 3.6 mEq/L (3.3-5.0)
[2018-04-04] MEDS ORDERED: cefTRIAXone SODIUM 1,000 MG/50 ML BAG IV STA (17:50)
[2018-04-04] MEDS ORDERED: IOVERSOL 100ml IV PRN (18:31)
--- NOTE | 2018-04-04 18:41 | Emergency Department Note ---
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 EMS states the patient had a total knee replacement on her right knee on March [address] Mendez. The patient states she has not really had an appetite since her operation. She states she has not been keeping up with her fluids. She states she felt weak this morning. The patient states she started to get a high heart rate 9 months ago. She states she had a heart monitor for 2 weeks. She notes she has not had a fast heart rate for a month. The patient states she checked her heart rate and blood pressure today. She states her HR was 137 the first time she checked it and then it went down to 90 after she checked again. She states her BP was way below 100 on both systolic and diastolic. She notes she has a little diarrhea today. She notes she had some SOB. The patient states she was worried so she wanted to go to the ED. Nursing staff states the patient had a 50/30 blood pressure in triage. The patient denies any pain, chest pain, abdominal pain, fevers, nausea, history of heart problems, pain with breathing, and kidney problems. The patient notes she urinated before coming to the ED. The patient notes she has a history of going into SVT. She states she takes antibiotics for her UTI. Home Medications Home Medications Medication Instructions Recorded Confirmed Type conjugated estrogens [Premarin] 0.3 mg PO 3XWK 10/29/17 04/04/18 History dicyclomine 10 mg PO BID 10/29/17 04/04/18 History indapamide 1.25 mg PO 5XWK 10/29/17 04/04/18 History levothyroxine [Synthroid] 100 mcg PO QAM 10/29/17 04/04/18 History lisinopril 10 mg PO QAM 10/29/17 04/04/18 History potassium chloride [Klor-Con M20] 20 meq PO QAM 10/29/17 04/04/18 History cranberry 1 dose PO DAILY 02/26/18 04/04/18 History cyclosporine [Restasis] 1 drp OPHTHALMIC (EYE) Q12H 02/26/18 04/04/18 History diltiazem HCl 300 mg PO QAM 02/26/18 04/04/18 History lactobacillus combination no.4 3,000 mmu cells PO DAILY 02/26/18 04/04/18 History [Probiotic] multivitamin 1 tab PO QAM 02/26/18 04/04/18 History aspirin [Ecotrin Low Strength] 81 mg PO BID 45 Days #90 tab 03/19/18 04/04/18 Rx acetaminophen [Pain Reliever] 1,000 mg PO Q6 03/31/18 04/04/18 History Saccharomyces boulardii [Florastor] 250 mg PO BID #20 cap 04/01/18 04/04/18 Rx cephalexin 500 mg PO BID 7 Days #14 cap 04/01/18 04/04/18 Rx Allergies Allergy/AdvReac Type Severity Reaction Status Date / Time pollen extracts Allergy Intermediate ITCHY Verified 04/04/18 17:12 EYES, SNEEZING, CONGESTION Sulfa (Sulfonamide Allergy Unknown CAN'T Verified 04/04/18 17:12 Antibiotics) REMEMBER guaifenesin AdvReac Intermediate nausea Verified 04/04/18 17:12 hydrocodone AdvReac Intermediate nausea Verified 04/04/18 17:12 metronidazole AdvReac Intermediate nausea Verified 04/04/18 17:12 phenylephrine AdvReac Intermediate nausea Verified 04/04/18 17:12 tramadol AdvReac Intermediate Nausea Verified 04/04/18 17:12 Past Med/Surg History Medical History Arthritis Chronic back pain Degenerative disc disease GERD (gastroesophageal reflux disease) Hearing deficit R ZAMORANO Hypertension Hypothyroidism IBS (irritable bowel syndrome) Osteoporosis Osteoporosis Pelvic fracture Presence of pessary SVT (supraventricular tachycardia) Spinal stenosis Urinary incontinence Surgical History H/O vein stripping History of appendectomy Taken out during hysterectomy History of colonoscopy History of left hip replacement History of surgical removal of pilonidal cyst History of tonsillectomy History of total abdominal hysterectomy and bilateral salpingo-oophorectomy History of total left hip arthroplasty Nausea and vomiting after administration of anesthetic agent Family History Mother Colon cancer Father CAD (coronary artery disease) Hypertension Father Family history of diabetes mellitus Other Family history non-contributory Social History marital status: Current Living Situation: Spouse Other Information That Helps Us Care for You: No Feels Safe at Home: Yes Safety Concerns: Feels Safe At This Time Smoking Status: Never smoker Second Hand Exposure: No Hx Alcohol Use: No Hx Substance Use: No Beliefs That Will Affect Care: None Preferred Language: Albanian Communication Ability: Effective Patient Information Coordinator Required: No Review of Systems See HPI for pertinent positives & negatives. and A total of 10 systems reviewed and were otherwise negative Physical Exam Vital Signs Vital Signs - 24 hr 04/04/18 16:29 04/04/18 18:51 04/04/18 19:57 Temperature 36.5 C Temperature Source Oral Sepsis Recent Fever Within 48 Hours No Sepsis Action Taken by Nursing No Action Required Pulse Rate - Lying Pulse Rate - Sitting Pulse Rate [Bilateral Apical] 84 Pulse Rate [Right Finger] Pulse Rhythm [Bilateral Apical] Pulse Rhythm [Right Finger] Regular Pulse Strength [Bilateral Apical] Pulse Strength [Right Finger] Normal Respiratory Rate 20 18 20 Respiratory Effort / Characteristics Non-Labored Non-Labored Non-Labored Spontaneous Respiratory Depth Normal Normal Normal Respiratory Pattern Regular Blood Pressure - Lying Blood Pressure - Sitting Blood Pressure 59/39 L Blood Pressure [Right Arm] 131/68 132/71 Blood Pressure Mean 45 Blood Pressure Mean [Right Arm] 89 91 Blood Pressure Position Sitting Blood Pressure Position [Right Arm] Sitting Pulse Oximetry 99 100 99 Oxygen Delivery Method Room Air Room Air Room Air 04/04/18 20:56 04/04/18 21:39 04/04/18 22:07 Temperature 36.8 C Temperature Source Oral Sepsis Recent Fever Within 48 Hours Sepsis Action Taken by Nursing Pulse Rate - Lying 84 Pulse Rate - Sitting 89 Pulse Rate [Bilateral Apical] 86 Pulse Rate [Right Finger] 88 87 Pulse Rhythm [Bilateral Apical] Regular Pulse Rhythm [Right Finger] Regular Pulse Strength [Bilateral Apical] Normal Pulse Strength [Right Finger] Normal Respiratory Rate 18 20 Respiratory Effort / Characteristics Non-Labored Spontaneous Respiratory Depth Normal Respiratory Pattern Regular Blood Pressure - Lying 105/67 Blood Pressure - Sitting 85/57 L Blood Pressure Blood Pressure [Right Arm] 110/75 117/67 Blood Pressure Mean Blood Pressure Mean [Right Arm] 86 83 Blood Pressure Position Blood Pressure Position [Right Arm] Lying Pulse Oximetry 99 100 Oxygen Delivery Method Room Air General: Non-ill appearing and pale older female in no acute distress. Patient was initally mildly sluggish and slumped in her wheelchair. HEENT: Normal cephalic atraumatic. Pupils are equal round and reactive to light. Extraocular movements are intact. Oropharynx is pink with moist mucous membranes. No swelling of the mouth lips or tongue. Neck: Supple with a midline trachea. No meningeal signs or stiffness, no JVD or bruits. No Stridor. Chest: Clear to auscultation bilaterally. No wheezes or rhonchi. No increased work of breathing. Heart: regular rate and rhythm. Abdomen: Soft nontender, nondistended without rebound guarding or rigidity. Extremities: No cyanosis clubbing or edema. No calf tenderness or assymetry Spine/Back. Non tender to palpation. No CVA tenderness Skin: Good turgor without rashes. Neurologic exam: Cranial nerves two through 12 are intact. Motor and sensation are intact and symmetrical throughout. Course 1640: Past medical records reviewed. The patient was evaluated in room A10, and a complete history and physical examination were performed. 1700: I reevaluated the patient. She is doing well. I ordered a CT scan for her chest and abdomen. 183: I reevaluated the patient. She is getting her CT scan. 1850: I reevaluated the patient. CT showed no PE. Patient is more comfortable. 1915: I reviewed the patient's case with Dr. Vale - [facility] Hospitalist. He will evaluate the patient for further management. Administered Medications Aspirin (Ecotrin Ectab) 81 mg PO BID [facility] Stop: 05/04/18 21:26 Last Admin: 04/04/18 22:47 Dose: Not Given Dicyclomine HCl (Bentyl) 10 mg PO BID [facility] Stop: 05/04/18 21:26 Last Admin: 04/04/18 22:49 Dose: 10 mg Heparin Sodium (Porcine) (Heparin Sodium (Porcine)) 5,000 units SQ Q12 [facility] Stop: 05/04/18 21:26 Last Admin: 04/04/18 22:47 Dose: Not Given Potassium Chloride/Sodium Chloride (Normal Saline W/20 Meq Kcl) 20 meq in 1, 000 mls @ 100 mls/hr IV .Q10H [facility] Stop: 05/04/18 21:26 Last Admin: 04/04/18 22:48 Dose: 100 mls/hr Miscellaneous (Order Awaiting Action) 1 ea N/A QS [facility] Stop: 05/05/18 00:00 Last Admin: 04/04/18 23:02 Dose: Not Given Saccharomyces Boulardii (Florastor) 250 mg PO BID [facility] Stop: 05/04/18 21:26 Last Admin: 04/04/18 22:49 Dose: 250 mg Discontinued Medications Sodium Chloride (Nss 1000ml) 1,000 mls @ 999 mls/hr IV .Q1H1M [facility] Stop: 04/04/18 18:00 Last Infusion: 04/04/18 18:24 Dose: 0 mls/hr Admin: 04/04/18 17:15 Dose: 999 mls/hr Ceftriaxone Sodium (Rocephin) 1,000 mg in 50 mls @ 100 mls/hr IV NOW STA Stop: 04/04/18 18:19 Last Infusion: 04/04/18 19:19 Dose: 0 mls/hr Admin: 04/04/18 18:50 Dose: 100 mls/hr Ioversol (Optiray 320 100ml) 93 ml IV ONCE PRN PRN Reason: Interaction Checking Stop: 04/08/18 18:30 Last Admin: 04/04/18 18:31 Dose: 93 ml Medical Decision Making Differential Diagnosis Differential Diagnosis includes: dehydration, cardiac disease, sepsis, anemia, post-operation complication, arrhythmia, and electrolyte or metabolic imbalance. Medical Records Attestation: I reviewed the patient's medical records. Home Medications Current Medication List: was personally reviewed by me Laboratory Data Attestation: I reviewed the patient's lab results. Result diagrams: 04/04/18 22:53 04/04/18 16:45 Lab Results 04/04/18 04/04/18 04/04/18 Range/Units 16:45 16:45 16:45 WBC 15.20 H (4.8-10.8) K/uL RBC 4.30 (4.2-5.4) M/uL Hgb 12.4 (12.0-16.0) g/dL POC Hgb (12.0-16.0) g/dl Hct 36.8 L (37-47) % POC Hct (37-47) % MCV 85.6 (80-100) fL MCH 28.8 (25-34) pg MCHC 33.7 (32-36) g/dL RDW Std Deviation 50.5 H (36.4-46.3) fL RDW Coeff of Brandan 16.2 H (11.5-14.5) % Plt Count 617 H (130-400) K/uL MPV 9.1 (7.4-10.4) fL Immature Gran % (Auto) 0.7 % Neut % (Auto) 71.2 % Lymph % (Auto) 18.4 % [place] % (Auto) 8.7 % Eos % (Auto) 0.5 % Baso % (Auto) 0.5 % Immature Gran # (Auto) 0.10 H (0.00-0.02) K/uL Neut # (Auto) 10.85 H (1.4-6.5) K/uL Lymph # (Auto) 2.79 (1.2-3.4) K/uL [place] # (Auto) 1.32 H (0.11-0.59) K/uL Eos # (Auto) 0.07 (0-0.5) K/uL Baso # (Auto) 0.07 (0-0.2) K/uL PT 11.1 (9.0-12.0) Seconds INR 1.1 (0.9-1.1) APTT 26.1 (21.0-31.0) Seconds PTT Ratio 1.0 POC Sodium (135-144) mEq/L Sodium 128 L (136-145) mmol/L POC Potassium (3.3-5.0) mEq/L Potassium 3.4 L (3.5-5.1) mmol/L POC Chloride (101-112) mEq/L Chloride 94 L (98-107) mmol/L Carbon Dioxide 22 (21-32) mmol/L POC Total CO2 (24-31) mEq/l Anion Gap 11.0 (3-11) POC Anion Gap (16-25) mmol/L POC BUN (7-18) mg/dl BUN 41 H (7-18) mg/dl Creatinine 0.87 (0.6-1.2) mg/dl POC Creatinine (0.6-1.3) mg/dl Est Cr Clr Drug Dosing 39.2 ml/min Est GFR ( Amer) 72.4 Est GFR (Non-Af Amer) 62.5 BUN/Creatinine Ratio 46.8 H (10-20) Glucose 116 H (70-99) mg/dl POC Glucose (other) (70-99) mg/dl Osmolality (280-300) mOsm/kg POC Lactic Acid Norberto (0.90-1.70) mmol/L Calcium 8.5 (8.5-10.1) mg/dl POC Ioniz Calcium [place] (1.12-1.32) mmol/l Magnesium 1.8 (1.8-2.4) mg/dl Total Bilirubin 0.6 (0.2-1) mg/dl AST 21 (15-37) U/L ALT 22 (12-78) U/L Alkaline Phosphatase 71 (45-117) U/L POC Troponin I (0-0.045) ng/ml Troponin I (0-0.045) ng/ml Total Protein 7.0 (6.4-8.2) gm/dl Albumin 2.8 L (3.4-5.0) gm/dl Globulin 4.2 H (2.5-4.0) gm/dl Albumin/Globulin Ratio 0.7 L (0.9-2) Lipase 206 (73-393) U/L Urine Osmolality (500-800) mOsm/kg 04/04/18 04/04/18 04/04/18 Range/Units 16:45 16:58 17:16 WBC (4.8-10.8) K/uL RBC (4.2-5.4) M/uL Hgb (12.0-16.0) g/dL POC Hgb (12.0-16.0) g/dl Hct (37-47) % POC Hct (37-47) % MCV (80-100) fL MCH (25-34) pg MCHC (32-36) g/dL RDW Std Deviation (36.4-46.3) fL RDW Coeff of Brandan (11.5-14.5) % Plt Count (130-400) K/uL MPV (7.4-10.4) fL Immature Gran % (Auto) % Neut % (Auto) % Lymph % (Auto) % [place] % (Auto) % Eos % (Auto) % Baso % (Auto) % Immature Gran # (Auto) (0.00-0.02) K/uL Neut # (Auto) (1.4-6.5) K/uL Lymph # (Auto) (1.2-3.4) K/uL [place] # (Auto) (0.11-0.59) K/uL Eos # (Auto) (0-0.5) K/uL Baso # (Auto) (0-0.2) K/uL PT (9.0-12.0) Seconds INR (0.9-1.1) APTT (21.0-31.0) Seconds PTT Ratio POC Sodium (135-144) mEq/L Sodium (136-145) mmol/L POC Potassium (3.3-5.0) mEq/L Potassium (3.5-5.1) mmol/L POC Chloride (101-112) mEq/L Chloride (98-107) mmol/L Carbon Dioxide (21-32) mmol/L POC Total CO2 (24-31) mEq/l Anion Gap (3-11) POC Anion Gap (16-25) mmol/L POC BUN (7-18) mg/dl BUN (7-18) mg/dl Creatinine (0.6-1.2) mg/dl POC Creatinine (0.6-1.3) mg/dl Est Cr Clr Drug Dosing ml/min Est GFR ( Amer) Est GFR (Non-Af Amer) BUN/Creatinine Ratio (10-20) Glucose (70-99) mg/dl POC Glucose (other) (70-99) mg/dl Osmolality 280 (280-300) mOsm/kg POC Lactic Acid Norberto 2.63 H (0.90-1.70) mmol/L Calcium (8.5-10.1) mg/dl POC Ioniz Calcium [place] (1.12-1.32) mmol/l Magnesium (1.8-2.4) mg/dl Total Bilirubin (0.2-1) mg/dl AST (15-37) U/L ALT (12-78) U/L Alkaline Phosphatase (45-117) U/L POC Troponin I < 0.03 (0-0.045) ng/ml Troponin I (0-0.045) ng/ml Total Protein (6.4-8.2) gm/dl Albumin (3.4-5.0) gm/dl Globulin (2.5-4.0) gm/dl Albumin/Globulin Ratio (0.9-2) Lipase (73-393) U/L Urine Osmolality (500-800) mOsm/kg 04/04/18 04/04/18 04/04/18 Range/Units 17:20 18:41 21:41 WBC (4.8-10.8) K/uL RBC (4.2-5.4) M/uL Hgb (12.0-16.0) g/dL POC Hgb 10.9 L (12.0-16.0) g/dl Hct (37-47) % POC Hct 32 L (37-47) % MCV (80-100) fL MCH (25-34) pg MCHC (32-36) g/dL RDW Std Deviation (36.4-46.3) fL RDW Coeff of Brandan (11.5-14.5) % Plt Count (130-400) K/uL MPV (7.4-10.4) fL Immature Gran % (Auto) % Neut % (Auto) % Lymph % (Auto) % [place] % (Auto) % Eos % (Auto) % Baso % (Auto) % Immature Gran # (Auto) (0.00-0.02) K/uL Neut # (Auto) (1.4-6.5) K/uL Lymph # (Auto) (1.2-3.4) K/uL [place] # (Auto) (0.11-0.59) K/uL Eos # (Auto) (0-0.5) K/uL Baso # (Auto) (0-0.2) K/uL PT (9.0-12.0) Seconds INR (0.9-1.1) APTT (21.0-31.0) Seconds PTT Ratio POC Sodium 129 L (135-144) mEq/L Sodium (136-145) mmol/L POC Potassium 3.6 (3.3-5.0) mEq/L Potassium (3.5-5.1) mmol/L POC Chloride 98 L (101-112) mEq/L Chloride (98-107) mmol/L Carbon Dioxide (21-32) mmol/L POC Total CO2 19 L (24-31) mEq/l Anion Gap (3-11) POC Anion Gap 17.0 (16-25) mmol/L POC BUN 33 H (7-18) mg/dl BUN (7-18) mg/dl Creatinine (0.6-1.2) mg/dl POC Creatinine 0.6 (0.6-1.3) mg/dl Est Cr Clr Drug Dosing ml/min Est GFR ( Amer) Est GFR (Non-Af Amer) BUN/Creatinine Ratio (10-20) Glucose (70-99) mg/dl POC Glucose (other) 109 H (70-99) mg/dl Osmolality (280-300) mOsm/kg POC Lactic Acid Norberto (0.90-1.70) mmol/L Calcium (8.5-10.1) mg/dl POC Ioniz Calcium [place] 1.02 L (1.12-1.32) mmol/l Magnesium (1.8-2.4) mg/dl Total Bilirubin (0.2-1) mg/dl AST (15-37) U/L ALT (12-78) U/L Alkaline Phosphatase (45-117) U/L POC Troponin I (0-0.045) ng/ml Troponin I < 0.015 (0-0.045) ng/ml Total Protein (6.4-8.2) gm/dl Albumin (3.4-5.0) gm/dl Globulin (2.5-4.0) gm/dl Albumin/Globulin Ratio (0.9-2) Lipase (73-393) U/L Urine Osmolality 527 (500-800) mOsm/kg 04/04/18 Range/Units 22:53 WBC (4.8-10.8) K/uL RBC (4.2-5.4) M/uL Hgb 9.6 L (12.0-16.0) g/dL POC Hgb (12.0-16.0) g/dl Hct 28.6 L (37-47) % POC Hct (37-47) % MCV (80-100) fL MCH (25-34) pg MCHC (32-36) g/dL RDW Std Deviation (36.4-46.3) fL RDW Coeff of Brandan (11.5-14.5) % Plt Count (130-400) K/uL MPV (7.4-10.4) fL Immature Gran % (Auto) % Neut % (Auto) % Lymph % (Auto) % [place] % (Auto) % Eos % (Auto) % Baso % (Auto) % Immature Gran # (Auto) (0.00-0.02) K/uL Neut # (Auto) (1.4-6.5) K/uL Lymph # (Auto) (1.2-3.4) K/uL [place] # (Auto) (0.11-0.59) K/uL Eos # (Auto) (0-0.5) K/uL Baso # (Auto) (0-0.2) K/uL PT (9.0-12.0) Seconds INR (0.9-1.1) APTT (21.0-31.0) Seconds PTT Ratio POC Sodium (135-144) mEq/L Sodium (136-145) mmol/L POC Potassium (3.3-5.0) mEq/L Potassium (3.5-5.1) mmol/L POC Chloride (101-112) mEq/L Chloride (98-107) mmol/L Carbon Dioxide (21-32) mmol/L POC Total CO2 (24-31) mEq/l Anion Gap (3-11) POC Anion Gap (16-25) mmol/L POC BUN (7-18) mg/dl BUN (7-18) mg/dl Creatinine (0.6-1.2) mg/dl POC Creatinine (0.6-1.3) mg/dl Est Cr Clr Drug Dosing ml/min Est GFR ( Amer) Est GFR (Non-Af Amer) BUN/Creatinine Ratio (10-20) Glucose (70-99) mg/dl POC Glucose (other) (70-99) mg/dl Osmolality (280-300) mOsm/kg POC Lactic Acid Norberto (0.90-1.70) mmol/L Calcium (8.5-10.1) mg/dl POC Ioniz Calcium [place] (1.12-1.32) mmol/l Magnesium (1.8-2.4) mg/dl Total Bilirubin (0.2-1) mg/dl AST (15-37) U/L ALT (12-78) U/L Alkaline Phosphatase (45-117) U/L POC Troponin I (0-0.045) ng/ml Troponin I (0-0.045) ng/ml Total Protein (6.4-8.2) gm/dl Albumin (3.4-5.0) gm/dl Globulin (2.5-4.0) gm/dl Albumin/Globulin Ratio (0.9-2) Lipase (73-393) U/L Urine Osmolality (500-800) mOsm/kg Imaging Data Radiologist's Impression: Radiology results as stated below per my review and the radiologist's interpretation: XR chest 1V portable CLINICAL HISTORY: Chest Pain COMPARISON STUDY: Chest radiograph March 31, 2018. FINDINGS: There is no pneumothorax or pleural effusion. There is no consolidation to suggest pneumonia. Cardiac size is normal. Mediastinal contours are normal. There is no evidence for pulmonary edema. The appearance of the chest is unchanged. IMPRESSION: No acute cardiopulmonary findings. Electronically signed by: Jeromy Mcleod M.D. 04/04/2018 5:[address] ANGIOGRAPHY OF THE CHEST, PULMONARY EMBOLUS PROTOCOL CLINICAL HISTORY: Chest pain. Recent surgery. Evaluate for pulmonary embolus. COMPARISON STUDY: Chest CT October 29, 2017. TECHNIQUE: Following IV administration of 93 mL of Optiray-320, helical axial images of the chest were obtained utilizing the pulmonary embolus protocol. Maximal intensity projections and sagittal and coronal reformats were viewed on an independent 3D workstation. IV contrast was administered without complication. Automated exposure control was utilized for the study. A dose lowering technique was utilized adhering to the principles of ALARA. CT DOSE: 459.20 mGy.cm FINDINGS: No pulmonary emboli are identified. There is no thoracic aortic dissection. The size of the heart is normal. There is extensive coronary artery calcification. Central airways are patent. There is no pneumothorax or pleural effusion. A few tiny pulmonary nodules are unchanged since CT of October 29, 2017. These are probably benign. There is no consolidation to suggest pneumonia. The abdomen and pelvis will be reported separate. IMPRESSION: 1. No pulmonary emboli identified. 2. No acute intrathoracic findings. 3. Extensive coronary artery calcification. Electronically signed by: Jeromy Mcleod M.D. 04/04/2018 6:[address] OF THE ABDOMEN AND PELVIS WITH CONTRAST CLINICAL HISTORY: hypotension COMPARISON STUDY: CT of the abdomen and pelvis June 08, 2013. TECHNIQUE: Following IV administration of 93 mL of Optiray-320, axial images of the abdomen and pelvis were obtained from the lung bases to the proximal femurs. Images were reviewed in the axial, sagittal, and coronal planes. IV contrast was administered without complication. Automated exposure control was utilized for the study. A dose lowering technique was utilized adhering to the principles of ALARA. FINDINGS: Please note that the chest CT will be reported separately. No pneumatosis, free air or portal venous gas is present. The liver, spleen, adrenal glands and pancreas are unremarkable. There is no hydronephrosis. There is a 6.4 cm left renal cyst. A subcentimeter right renal lesion favors a cyst. There is no biliary or pancreatic ductal dilatation. A pessary device is in place. Images of the pelvis are degraded by streak artifact from a left hip arthroplasty. There is no evidence for a bowel obstruction. Note is made of colonic diverticulosis without evidence for acute diverticulitis. Small fat- containing right ventral hernia is noted. No suspicious osseous lesion is noted. Old right pubic ring fracture is noted. Evaluation of the abdomen and pelvis is somewhat difficult given a paucity of fat. Apparent pericolonic infiltration is likely due to normal vessels. IMPRESSION: 1. No acute process within the abdomen or pelvis. 2. Extensive colonic diverticulosis without convincing evidence for acute diverticulitis. 3. No bowel obstruction. Electronically signed by: Jeromy Mcleod M.D. 04/04/2018 6:52 PM ECG Data Attestation: I personally reviewed and interpreted this ECG as follows: Indication: weakness Rate (beats per minute): 79 Rhythm: sinus rhythm (with poor baseline) Findings: no acute ischemic change and no ectopy Comparison ECG Date: from (04/10/18) Change: no significant change Blood Pressure Blood Pressure Findings: Normal blood pressure Blood Pressure Disposition: further management by hospitalist ALYSHA Camara This patient comes after having apparent tachycardia and hypotension at home. In triage she was noted to have a blood pressure in the 50s systolic and got sluggish and passed out in the wheelchair they immediately wheeled her back to room A1, our resuscitation bay. The nurse called for and I promptly ran in to see her. She did seem pale at the time we put her in a bed and established to large-bore IVs. Her blood pressure did come up. she had no chest pain or shortness of breath at the time on the vehicle monitor technician. she was in normal sinus in the 80s. Her blood pressure did come up and responded to fluids. She did have recent knee surgery. She was seen here the other day for similar type complaints and was treated for UTI also. I did give her a dose of IV Rocephin. Blood cultures were obtained lactic acid is mildly and she has an elevated white count. She looks so much better. I do not think is likely sepsis but that would still be in the differential and therefore was given the IV antibiotics with 1 gram IV Rocephin. I did a CAT scan of her chest and abdomen to rule out other pathology. When she was immediately brought back while I was resuscitated her Dr. Carrizales also did a MARIANO exam on her and there is no fluid or obvious abnormalities. CAT scan of her chest shows no PE or the other acute abnormalities. CAT scan of her abdomen does not show any acute abnormalities either. She has had no evidence of arrhythmia thus far. It is possible she was having arrhythmia earlier. Her cardiac biomarkers are not elevated. Given her severe hypotension and syncopal episode I do think she needs to be admitted for further inpatient treatment and evaluation. I have consulted Dr. Rubio to see her for these measures Impression & Plan Hypotension, Hyponatremia, Weakness, Near syncope Critical Care Time I have personally spent greater than 30 minutes of critical care time in the direct management of this patient. This includes bedside care, interpretation of diagnostic studies, and testing, discussion with consultants, patient, and family members, and other required patient management activities. This 30 minutes is in excess of all separately billable procedures. Critical Care Time: Yes Total Critical Care Time: 30 Discharge Plan Visit Data *Final* Discharge Date/Time: 04/04/18 20:57 Chief Complaint: Hypotension Stated Complaint: LOW BP,HIGH PULSE,WEAKNESS ED Provider: Robin Luong Discharge Problem: Hypotension, Hyponatremia, Weakness, Near syncope Patient Disposition: Admitted As Inpatient Discharge Instructions Interventions: ED Discharge Assessment Last Done: 04/04/18 20:57 The scribe's documentation has been prepared under my direction and personally reviewed by me in its entirety. I confirm that the note above accurately reflects all work, treatment, procedures, and medical decision making performed by me.
--- NOTE | 2018-04-04 18:45 | CT Scan Report ---
CT ANGIOGRAPHY OF THE CHEST, PULMONARY EMBOLUS PROTOCOL CLINICAL HISTORY: Chest pain. Recent surgery. Evaluate for pulmonary embolus. COMPARISON STUDY: Chest CT October 29, 2017. TECHNIQUE: Following IV administration of 93 mL of Optiray-320, helical axial images of the chest wer e obtained utilizing the pulmonary embolus protocol. Maximal intensity projections and sagittal and coronal reformats were viewed on an independent 3D workstation. IV contrast was administered without complication. Automated exposure control was utilized for the study. A dose lowering technique was utilized adhering to the principles of ALARA. CT DOSE: 459.20 mGy.cm FINDINGS: No pulmonary emboli are identified. There is no thoracic aortic dissection. The size of th e heart is normal. There is extensive coronary artery calcification. Central airways are patent. Ther e is no pneumothorax or pleural effusion. A few tiny pulmonary nodules are unchanged since CT of Sept emb2017. These are probably benign. There is no consolidation to suggest pneumonia. The abdomen and pelvis will be reported separate. IMPRESSION: 1. No pulmonary emboli identified. 2. No acute intrathoracic findings. 3. Extensive coronary artery calcification. Electronically signed by: Jeromy Mcleod M.D. 04/04/2018 6:43 PM
--- NOTE | 2018-04-04 18:53 | CT Scan Report ---
CT OF THE ABDOMEN AND PELVIS WITH CONTRAST CLINICAL HISTORY: hypotension COMPARISON STUDY: CT of the abdomen and pelvis June 08, 2013. TECHNIQUE: Following IV administration of 93 mL of Optiray-320, axial images of the abdomen and pelvi s were obtained from the lung bases to the proximal femurs. Images were reviewed in the axial, sagitt al, and coronal planes. IV contrast was administered without complication. Automated exposure contro l was utilized for the study. A dose lowering technique was utilized adhering to the principles of A CARMITA. FINDINGS: Please note that the chest CT will be reported separately. No pneumatosis, free air or port al venous gas is present. The liver, spleen, adrenal glands and pancreas are unremarkable. There is n o hydronephrosis. There is a 6.4 cm left renal cyst. A subcentimeter right renal lesion favors a cyst . There is no biliary or pancreatic ductal dilatation. A pessary device is in place. Images of the pe lvis are degraded by streak artifact from a left hip arthroplasty. There is no evidence for a bowel o bstruction. Note is made of colonic diverticulosis without evidence for acute diverticulitis. Small f at-containing right ventral hernia is noted. No suspicious osseous lesion is noted. Old right pubic r ing fracture is noted. Evaluation of the abdomen and pelvis is somewhat difficult given a paucity of fat. Apparent pericolonic infiltration is likely due to normal vessels. IMPRESSION: 1. No acute process within the abdomen or pelvis. 2. Extensive colonic diverticulosis without convincing evidence for acute diverticulitis. 3. No bowel obstruction. Electronically signed by: Jeromy Mcleod M.D. 04/04/2018 6:52 PM
--- NOTE | 2018-04-04 20:36 | History & Physical Report ---
Date of Service April 04, 2018 Assessment & Plan (1) Near syncope: Near syncope/hypotension/dehydration/hyponatremia/hypokalemia/constipation -- Cause of symptoms are likely multifactorial: Slow recovery from knee replacement surgery, decreased oral intake for both liquids and solids associated with relatively decreased activity and side effect of medications. With relatively low blood pressure, will hold medications including diltiazem, indapamide and lisinopril. Continue IV fluid rehydration. Follow serial CBC with differential, chemistry profile and magnesium levels. Present on Admission?: Yes (2) Generalized weakness: As above. Present on Admission?: Yes (3) Hyponatremia: Likely secondary to diuretic while having decreased oral intake. Present on Admission?: Yes (4) Hypokalemia: As above. Present on Admission?: Yes (5) Hypotension: Secondary to decreased intravascular volume associated dehydration. We will continue to hydrate with IV fluids. Patient will be placed on a monitored bed to follow blood pressure closely. Present on Admission?: Yes (6) SVT (supraventricular tachycardia): Patient has a history of supraventricular tachycardia. The tachycardia that she had at home and earlier in the hospital assessment was more physiologic and appropriate with decreased intravascular volume. With IV fluid rehydration, heart rate has been in the mid 80s to low 90s while in the ED. Present on Admission?: Yes (7) Hypothyroidism (acquired): Continue levothyroxine sodium at 100 mcg p.o. daily. Present on Admission?: Yes (8) Dehydration: As noted above, continue to hydrate with IV fluids. The patient does continue to have orthostatic symptoms, and will be placed on restricted walking, only with nurses. Present on Admission?: Yes History of Present Illness Chief Complaint: The patient presents to the emergency department with progressively worsening generalized weakness, and a low blood pressure and high heart rate earlier in the day prior to arrival. Primary Care Provider: Hossein Choudhury MD The patient is an 82-year-old female who underwent an uneventful right total knee arthroplasty by Dr. Mendez during admission from 03/18-03/20. She was discharged to home, and was undergoing physical therapy as directed. She reports that she had not yet regained her strength after surgery, and when she awoke this morning, she noted her heart rate was elevated and when she checked her heart rate was 137. Later on in the day, she checked her heart rate again it was down to 90, but she also noted that her systolic and diastolic blood pressures were both dropping as well. She also later became short of breath, and with the prescription his symptoms, presented to the emergency department for assessment. Nurses during triage at the emergency department noted that her blood pressure was 50/30, she was brought rapidly back into the emergency department, received aggressive fluid rehydration, and blood pressure rebounded into the upper 90s and low 100s systolic. She did however while in the emergency department, continued to show orthostatic symptoms. Allergies Allergy/AdvReac Type Severity Reaction Status Date / Time pollen extracts Allergy Intermediate ITCHY Verified 04/04/18 17:12 EYES, SNEEZING, CONGESTION Sulfa (Sulfonamide Allergy Unknown CAN'T Verified 04/04/18 17:12 Antibiotics) REMEMBER guaifenesin AdvReac Intermediate nausea Verified 04/04/18 17:12 hydrocodone AdvReac Intermediate nausea Verified 04/04/18 17:12 metronidazole AdvReac Intermediate nausea Verified 04/04/18 17:12 phenylephrine AdvReac Intermediate nausea Verified 04/04/18 17:12 tramadol AdvReac Intermediate Nausea Verified 04/04/18 17:12 Home Medications Home Medications Medication Instructions Recorded Confirmed Type conjugated estrogens [Premarin] 0.3 mg PO 3XWK 10/29/17 04/04/18 History dicyclomine 10 mg PO BID 10/29/17 04/04/18 History indapamide 1.25 mg PO 5XWK 10/29/17 04/04/18 History levothyroxine [Synthroid] 100 mcg PO QAM 10/29/17 04/04/18 History lisinopril 10 mg PO QAM 10/29/17 04/04/18 History potassium chloride [Klor-Con M20] 20 meq PO QAM 10/29/17 04/04/18 History cranberry 1 dose PO DAILY 02/26/18 04/04/18 History cyclosporine [Restasis] 1 drp OPHTHALMIC (EYE) Q12H 02/26/18 04/04/18 History diltiazem HCl 300 mg PO QAM 02/26/18 04/04/18 History lactobacillus combination no.4 3,000 mmu cells PO DAILY 02/26/18 04/04/18 History [Probiotic] multivitamin 1 tab PO QAM 02/26/18 04/04/18 History aspirin [Ecotrin Low Strength] 81 mg PO BID 45 Days #90 tab 03/19/18 04/04/18 Rx acetaminophen [Pain Reliever] 1,000 mg PO Q6 03/31/18 04/04/18 History Saccharomyces boulardii [Florastor] 250 mg PO BID #20 cap 04/01/18 04/04/18 Rx cephalexin 500 mg PO BID 7 Days #14 cap 04/01/18 04/04/18 Rx Past Med/Surg History Medical History Arthritis Chronic back pain Degenerative disc disease GERD (gastroesophageal reflux disease) Hearing deficit R ZAMORANO Hypertension Hypothyroidism IBS (irritable bowel syndrome) Osteoporosis Osteoporosis Pelvic fracture Presence of pessary SVT (supraventricular tachycardia) Spinal stenosis Urinary incontinence Surgical History H/O vein stripping History of appendectomy Taken out during hysterectomy History of colonoscopy History of left hip replacement History of surgical removal of pilonidal cyst History of tonsillectomy History of total abdominal hysterectomy and bilateral salpingo-oophorectomy History of total left hip arthroplasty Nausea and vomiting after administration of anesthetic agent Family History Mother Colon cancer Father CAD (coronary artery disease) Hypertension Father Family history of diabetes mellitus Other Family history non-contributory Social History marital status: Current Living Situation: Spouse Other Information That Helps Us Care for You: No Feels Safe at Home: Yes Safety Concerns: Feels Safe At This Time Smoking Status: Never smoker Second Hand Exposure: No Hx Alcohol Use: No Hx Substance Use: No Beliefs That Will Affect Care: None Preferred Language: Maltese Communication Ability: Effective Clinical Pharmacist Required: No Review of Systems The patient denies chest pain, cough, lower extremity swelling, sore throat, fevers, chills, sweats, nausea, vomiting, diarrhea , constipation, abdominal pain, pelvic pain, blood in urine or stool, dysuria, urinary frequency or urgency, headache, memory loss, loss of consciousness, rash, abnormal bruising or bleeding, weakness, numbness or tingling in arms or legs other than expected postop, generalized arthralgias or myalgias, back or neck pain, or night sweats. The review of systems is otherwise negative other than for that already noted above, and at least 10 systems have been reviewed. Physical Exam 2 Vital Signs (Past 24 Hours): Last Vital Signs Temp 36.5 C 04/04/18 16:29 Pulse 84 04/04/18 18:51 Resp 20 04/04/18 19:57 BP 132/71 04/04/18 19:57 Pulse Ox 99 04/04/18 19:57 Physical Exam: The patient is awake, alert and oriented �3, well developed and well nourished, normocephalic and atraumatic, lying in bed and in no acute distress. HEENT--PERRL, EOMI, mucous membranes and oropharynx dry. Neck--supple. No JVD. No bruits. Thyroid normal, trachea midline, no adenopathy. Heart--normal S1 and S2. No murmurs, rubs or gallops. Lungs--clear bilaterally, no respiratory distress, no accessory muscle use. Abdomen--normal bowel sounds and soft. Nontender. Nondistended. Extremities--no cyanosis or clubbing. No edema. There are good distal pulses b/ l. Dermatologic--normal skin turgor, normal color, no abnormal lymph nodes, no rash. Neurologic--cranial nerves II through XII grossly intact. Rheumatologic--normal range of motion. Psychiatric--normal affect. Results & Data Laboratory Results Laboratory Results WBC 15.20 K/uL (4.8-10.8) H 04/04/18 16:45 RBC 4.30 M/uL (4.2-5.4) 04/04/18 16:45 Hgb 9.6 g/dL (12.0-16.0) L 04/04/18 22:53 POC Hgb 10.9 g/dl (12.0-16.0) L 04/04/18 17:20 Hct 28.6 % (37-47) L 04/04/18 22:53 POC Hct 32 % (37-47) L 04/04/18 17:20 MCV 85.6 fL (80-100) 04/04/18 16:45 MCH 28.8 pg (25-34) 04/04/18 16:45 MCHC 33.7 g/dL (32-36) 04/04/18 16:45 RDW Std Deviation 50.5 fL (36.4-46.3) H 04/04/18 16:45 RDW Coeff of Brandan 16.2 % (11.5-14.5) H 04/04/18 16:45 Plt Count 617 K/uL (130-400) H 04/04/18 16:45 MPV 9.1 fL (7.4-10.4) 04/04/18 16:45 Immature Gran % (Auto) 0.7 % 04/04/18 16:45 Neut % (Auto) 71.2 % 04/04/18 16:45 Lymph % (Auto) 18.4 % 04/04/18 16:45 Casey % (Auto) 8.7 % 04/04/18 16:45 Eos % (Auto) 0.5 % 04/04/18 16:45 Baso % (Auto) 0.5 % 04/04/18 16:45 Immature Gran # (Auto) 0.10 K/uL (0.00-0.02) H 04/04/18 16:45 Neut # (Auto) 10.85 K/uL (1.4-6.5) H 04/04/18 16:45 Lymph # (Auto) 2.79 K/uL (1.2-3.4) 04/04/18 16:45 Casey # (Auto) 1.32 K/uL (0.11-0.59) H 04/04/18 16:45 Eos # (Auto) 0.07 K/uL (0-0.5) 04/04/18 16:45 Baso # (Auto) 0.07 K/uL (0-0.2) 04/04/18 16:45 PT 11.1 Seconds (9.0-12.0) 04/04/18 16:45 INR 1.1 (0.9-1.1) 04/04/18 16:45 APTT 26.1 Seconds (21.0-31.0) 04/04/18 16:45 PTT Ratio 1.0 04/04/18 16:45 POC Sodium 129 mEq/L (135-144) L 04/04/18 17:20 Sodium 128 mmol/L (136-145) L 04/04/18 16:45 POC Potassium 3.6 mEq/L (3.3-5.0) 04/04/18 17:20 Potassium 3.4 mmol/L (3.5-5.1) L 04/04/18 16:45 POC Chloride 98 mEq/L (101-112) L 04/04/18 17:20 Chloride 94 mmol/L (98-107) L 04/04/18 16:45 Carbon Dioxide 22 mmol/L (21-32) 04/04/18 16:45 POC Total CO2 19 mEq/l (24-31) L 04/04/18 17:20 Anion Gap 11.0 (3-11) 04/04/18 16:45 POC Anion Gap 17.0 mmol/L (16-25) 04/04/18 17:20 POC BUN 33 mg/dl (7-18) H 04/04/18 17:20 BUN 41 mg/dl (7-18) H 04/04/18 16:45 Creatinine 0.87 mg/dl (0.6-1.2) 04/04/18 16:45 POC Creatinine 0.6 mg/dl (0.6-1.3) 04/04/18 17:20 Est Cr Clr Drug Dosing 39.2 ml/min 04/04/18 16:45 Est GFR ( Amer) 72.4 04/04/18 16:45 Est GFR (Non-Af Amer) 62.5 04/04/18 16:45 BUN/Creatinine Ratio 46.8 (10-20) H 04/04/18 16:45 Glucose 116 mg/dl (70-99) H 04/04/18 16:45 POC Glucose (other) 109 mg/dl (70-99) H 04/04/18 17:20 Osmolality 280 mOsm/kg (280-300) 04/04/18 16:45 POC Lactic Acid Norberto 2.63 mmol/L (0.90-1.70) H 04/04/18 17:16 Calcium 8.5 mg/dl (8.5-10.1) 04/04/18 16:45 POC Ioniz Calcium Carolina 1.02 mmol/l (1.12-1.32) L 04/04/18 17:20 Magnesium 1.8 mg/dl (1.8-2.4) 04/04/18 16:45 Total Bilirubin 0.6 mg/dl (0.2-1) 04/04/18 16:45 AST 21 U/L (15-37) 04/04/18 16:45 ALT 22 U/L (12-78) 04/04/18 16:45 Alkaline Phosphatase 71 U/L (45-117) 04/04/18 16:45 POC Troponin I < 0.03 ng/ml (0-0.045) 04/04/18 16:58 Troponin I < 0.015 ng/ml (0-0.045) 04/04/18 21:41 Total Protein 7.0 gm/dl (6.4-8.2) 04/04/18 16:45 Albumin 2.8 gm/dl (3.4-5.0) L 04/04/18 16:45 Globulin 4.2 gm/dl (2.5-4.0) H 04/04/18 16:45 Albumin/Globulin Ratio 0.7 (0.9-2) L 04/04/18 16:45 Lipase 206 U/L (73-393) 04/04/18 16:45 Urine Osmolality 527 mOsm/kg (500-800) 04/04/18 18:41 Diagnostic Findings [place], [place] [phone] XRay Report Patient: Khris JUAREZ Date: 04/04/18 MR#: [id number]: [address] Acct ID:[id number]: Date: 1935City Zip: [place] [address] Age: 82Location: ED Sex: F Room/Bed: Att Phy: Diagnosis: LOW BP,HIGH PULSE,WEAKNESS Barb Phy: Sae Choudhury MDService Date: 04/04/18 Fam Phy: Interpreting Phy: Jeromy Mcleod MD Admit Phy: Ordering Phy: Robin Luong M.D. cc: ~ XR chest 1V portable CLINICAL HISTORY: Chest Pain COMPARISON STUDY: Chest radiograph March 31, 2018. FINDINGS: There is no pneumothorax or pleural effusion. There is no consolidation to suggest pneumonia. Cardiac size is normal. Mediastinal contours are normal. There is no evidence for pulmonary edema. The appearance of the chest is unchanged. IMPRESSION: No acute cardiopulmonary findings. Electronically signed by: Jeromy Mcleod M.D. 04/04/2018 5:08 PM Dictated: 04/04/181706 Transcribed: 04/04/181706 [place], [place] [phone] CT Scan Report Patient: Krhis JUAREZ Date: 04/04/18 MR#: [id number]: [address] Acct ID:[id number]: Date: [address] Zip: [place] [address] Age: 82Location: ED Sex: F Room/Bed: Att Phy: Diagnosis: LOW BP,HIGH PULSE,WEAKNESS Barb Phy: Sae Choudhury MDService Date: 04/04/18 Fam Phy: Interpreting Phy: Jeromy Mcleod MD Admit Phy: Ordering Phy: Robin Luong M.D. cc: ~ CT OF THE ABDOMEN AND PELVIS WITH CONTRAST CLINICAL HISTORY: hypotension COMPARISON STUDY: CT of the abdomen and pelvis June 08, 2013. TECHNIQUE: Following IV administration of 93 mL of Optiray-320, axial images of the abdomen and pelvis were obtained from the lung bases to the proximal femurs. Images were reviewed in the axial, sagittal, and coronal planes. IV contrast was administered without complication. Automated exposure control was utilized for the study. A dose lowering technique was utilized adhering to the principles of ALARA. FINDINGS: Please note that the chest CT will be reported separately. No pneumatosis, free air or portal venous gas is present. The liver, spleen, adrenal glands and pancreas are unremarkable. There is no hydronephrosis. There is a 6.4 cm left renal cyst. A subcentimeter right renal lesion favors a cyst. There is no biliary or pancreatic ductal dilatation. A pessary device is in place. Images of the pelvis are degraded by streak artifact from a left hip arthroplasty. There is no evidence for a bowel obstruction. Note is made of colonic diverticulosis without evidence for acute diverticulitis. Small fat- containing right ventral hernia is noted. No suspicious osseous lesion is noted. Old right pubic ring fracture is noted. Evaluation of the abdomen and pelvis is somewhat difficult given a paucity of fat. Apparent pericolonic infiltration is likely due to normal vessels. IMPRESSION: 1. No acute process within the abdomen or pelvis. 2. Extensive colonic diverticulosis without convincing evidence for acute diverticulitis. 3. No bowel obstruction. Electronically signed by: Jeromy Mcleod M.D. 04/04/2018 6:52 PM Dictated: 04/04/181842 Transcribed: 04/04/181842 [place], [place] [phone] CT Scan Report Patient: Khris JUAREZ Date: 04/04/18 MR#: [id number]: [address] Acct ID:[id number]: Date: 1935City Zip: [place] [address] Age: 82Location: ED Sex: F Room/Bed: Att Phy: Diagnosis: LOW BP,HIGH PULSE,WEAKNESS Barb Phy: Sae Choudhuryervice Date: 04/04/18 Fam Phy: Interpreting Phy: Jeromy Mcleod MD Admit Phy: Ordering Phy: Robin Luong M.D. cc: ~ CT ANGIOGRAPHY OF THE CHEST, PULMONARY EMBOLUS PROTOCOL CLINICAL HISTORY: Chest pain. Recent surgery. Evaluate for pulmonary embolus. COMPARISON STUDY: Chest CT October 29, 2017. TECHNIQUE: Following IV administration of 93 mL of Optiray-320, helical axial images of the chest were obtained utilizing the pulmonary embolus protocol. Maximal intensity projections and sagittal and coronal reformats were viewed on an independent 3D workstation. IV contrast was administered without complication. Automated exposure control was utilized for the study. A dose lowering technique was utilized adhering to the principles of ALARA. CT DOSE: 459.20 mGy.cm FINDINGS: No pulmonary emboli are identified. There is no thoracic aortic dissection. The size of the heart is normal. There is extensive coronary artery calcification. Central airways are patent. There is no pneumothorax or pleural effusion. A few tiny pulmonary nodules are unchanged since CT of October 29, 2017. These are probably benign. There is no consolidation to suggest pneumonia. The abdomen and pelvis will be reported separate. IMPRESSION: 1. No pulmonary emboli identified. 2. No acute intrathoracic findings. 3. Extensive coronary artery calcification. Electronically signed by: Jeromy Mcleod M.D. 04/04/2018 6:43 PM Dictated: 04/04/181832 Transcribed: 04/04/18 183 Medications Administered Home Medications Medication Instructions Recorded Confirmed conjugated estrogens [Premarin] 0.3 mg PO 3XWK 10/29/17 04/04/18 dicyclomine 10 mg PO BID 10/29/17 04/04/18 indapamide 1.25 mg PO 5XWK 10/29/17 04/04/18 levothyroxine [Synthroid] 100 mcg PO QAM 10/29/17 04/04/18 lisinopril 10 mg PO QAM 10/29/17 04/04/18 potassium chloride [Klor-Con M20] 20 meq PO QAM 10/29/17 04/04/18 cranberry 1 dose PO DAILY 02/26/18 04/04/18 cyclosporine [Restasis] 1 drp OPHTHALMIC (EYE) Q12H 02/26/18 04/04/18 diltiazem HCl 300 mg PO QAM 02/26/18 04/04/18 lactobacillus combination no.4 3,000 mmu cells PO DAILY 02/26/18 04/04/18 [Probiotic] multivitamin 1 tab PO QAM 02/26/18 04/04/18 acetaminophen [Pain Reliever] 1,000 mg PO Q6 03/31/18 04/04/18 Previous Rx's Medication Instructions Recorded aspirin [Ecotrin Low Strength] 81 mg PO BID 45 Days #90 tab 03/19/18 Saccharomyces boulardii [Florastor] 250 mg PO BID #20 cap 04/01/18 cephalexin 500 mg PO BID 7 Days #14 cap 04/01/18 Code Status & VTE Plan VTE Prophylaxis Plan VTE Prophylaxis will be ordered: Yes _ (1) Hypotension Hypotension type: unspecified hypotension type Trimester: Qualified Code(s) : I95.9 - Hypotension, unspecified
[2018-04-04] MEDS ORDERED: POLYETHYLENE (MIRALAX) 17 GM PACK PO PRN (21:27)
[2018-04-04] MEDS ORDERED: MAGNESIUM HYDROXIDE SUSP 30 ML UDC PO PRN (21:27)
[2018-04-04] MEDS ORDERED: ONDANSETRON INJ 2 MG/ML 2 ML VIAL IV PRN (21:27)
[2018-04-04] MEDS ORDERED: ALUMINUM/MAGNESIUM SUSP 30 ML UDC PO PRN (21:27)
[2018-04-04] MEDS ORDERED: HEPARIN SOD 5,000 UNIT/0.5 ML VIAL SQ SCH (21:27)
[2018-04-04] MEDS ORDERED: ASPIRIN 81 MG ECTAB PO SCH (21:27)
[2018-04-04] MEDS: NSS + 20MEQ KCL 20 MEQ/1,000 ML BAG IV SCH (22:48)
[2018-04-04] MEDS: DICYCLOMINE HCL 10 MG CAP PO SCH (22:49)
[2018-04-04] MEDS: SACCHAROMYCES BOULARDII 250 MG CAP PO SCH (22:49)
[2018-04-04] MEDS: RESTASIS~ORDER AWAITING ACTION SCH (23:02)
[2018-04-04 23:07] LABS: Hematocrit (blood only) 28.6 % (37-47); Hemoglobin 9.6 g/dL (12.0-16.0)
[2018-04-05] MEDS ORDERED: PANTOprazole 40 MG in DEXTROSE 5% 100 ML IV SCH
[2018-04-05] MEDS ORDERED: PANTOprazole 80 MG in DEXTROSE 5% 100 ML IV ONE (01:02)
[2018-04-05] MEDS ORDERED: PANTOPRAZOLE BOLUS/DRIP 1 EA IV STA (01:02)
[2018-04-05] MEDS: PANTOprazole 40 MG in DEXTROSE 5% 100 ML IV SCH ×5 (01:40→22:21)
[2018-04-05] MEDS: LEVOTHYROXINE SODIUM 100 MCG TABLET PO SCH (06:06)
[2018-04-05 07:01] LABS: Basophils # (auto) 0.03 K/uL (0-0.2); Basophils % (auto) 0.3 %; Eosinophils # (auto) 0.06 K/uL (0-0.5); Eosinophils % (auto) 0.7 %; Hematocrit (blood only) 23.7 % (37-47); Immature Granulocytes # (auto) 0.05 K/uL (0.00-0.02); Immature Granulocytes % (auto) 0.6 %; Lymphocytes # (auto) 2.49 K/uL (1.2-3.4); Lymphocytes % (auto) 27.4 %; Mean Corpuscular Hgb Conc 33.8 g/dL (32-36); Mean Corpuscular Volume 84.3 fL (80-100); Mean Platelet Volume 8.7 fL (7.4-10.4); Monocytes # (auto) 0.89 K/uL (0.11-0.59); Monocytes % (auto) 9.8 %; Neutrophils # (auto) 5.57 K/uL (1.4-6.5); Neutrophils % (auto) 61.2 %; Platelet Count 437 K/uL (130-400); RDW Coefficient of Variation 16.3 % (11.5-14.5); Red Blood Count 2.81 M/uL (4.2-5.4); White Blood Count 9.09 K/uL (4.8-10.8)
[2018-04-05 07:09] LABS: INR 1.1 (0.9-1.1); Partial Thromboplastin Time 25.4 Seconds (21.0-31.0); Prothrombin Time 10.9 Seconds (9.0-12.0)
[2018-04-05 07:21] LABS: RBC Morphology Unremarkable
[2018-04-05 07:45] LABS: Albumin Globulin Ratio 0.8 (0.9-2); Albumin Level 2.2 gm/dl (3.4-5.0); BUN Creatinine Ratio 67.9 (10-20); Bilirubin,Total 0.4 mg/dl (0.2-1); Calcium 7.3 mg/dl (8.5-10.1); Creatinine Clr Calc Pharmacy 62.1 ml/min; Globulin 2.9 gm/dl (2.5-4.0); Potassium 3.1 mmol/L (3.5-5.1); Total Protein 5.1 gm/dl (6.4-8.2)
[2018-04-05] MEDS: NSS + 20MEQ KCL 20 MEQ/1,000 ML BAG IV SCH ×2 (08:38→20:51)
[2018-04-05] MEDS: DICYCLOMINE HCL 10 MG CAP PO SCH ×2 (08:40→22:21)
[2018-04-05] MEDS: dilTIAZem HCL 300 MG CAPCR PO SCH (08:40)
[2018-04-05] MEDS: ACETAMINOPHEN 500 MG TAB PO SCH ×3 (08:40→22:21)
[2018-04-05] MEDS ORDERED: NON-FORMULARY MEDICATION (Lactobacillus Combination No.4 [Probiotic] 3,000 mmu cells) PO SCH (09:00)
[2018-04-05] MEDS ORDERED: CRANBERRY PO SCH (09:00)
[2018-04-05] MEDS: MULTIVITAMIN TAB PO SCH (12:40)
[2018-04-05] MEDS: POTASSIUM CHLORIDE 20 MEQ TABCR PO SCH (12:40)
[2018-04-05] MEDS: SACCHAROMYCES BOULARDII 250 MG CAP PO SCH ×2 (12:40→22:21)
[2018-04-05] MEDS: RESTASIS~ORDER AWAITING ACTION SCH ×3 (12:41→23:32)
--- NOTE | 2018-04-05 14:24 | Consultation Report ---
DATE OF CONSULTATION: 04/05/2018 GI CONSULT NOTE REASON FOR EVALUATION: Rectal bleeding. HISTORY OF PRESENT ILLNESS: The patient is an 82-year-old status post right knee replacement in late February by Dr. Mendez. The patient normally takes a baby aspirin once a day, but since her knee replacement surgery, she has been taking 2 baby aspirin a day. She has not had any nausea or vomiting or abdominal pain. No previous history of peptic ulcer disease or GI bleeding, but presented to the hospital yesterday with weakness and near syncope. She was noted to be tachycardic and hypotensive with low sodium and potassium. She was hospitalized and placed on IV fluids, and since being hospitalized, she had a large melenic stool followed by [address] scan of the abdomen was performed and showed a significant colonic diverticulosis, but no other abnormalities. GI consultation has been requested. PAST MEDICAL HISTORY: Remarkable for history of supraventricular tachycardia, hypothyroidism. ALLERGIES: SULFA, GUAIFENESIN, HYDROCODONE, METRONIDAZOLE, PHENYLEPHRINE AND TRAMADOL. MEDICATIONS: Premarin, dicyclomine, indapamide, Synthroid, lisinopril, Klor-Con, cranberry, Restasis, diltiazem, probiotic, multiple vitamin, 2 baby aspirin a day, acetaminophen, Florastor probiotic and cephalexin. FAMILY HISTORY: Mother of colon cancer. Father of coronary artery disease. Other family members have diabetes. SOCIAL HISTORY: The patient is . She lives with her spouse. Does not smoke, does not drink any alcohol. REVIEW OF SYSTEMS: Positive for mild right knee pain and fatigue. PHYSICAL EXAMINATION: GENERAL: The patient appears in no acute distress. VITAL SIGNS: Blood pressure is 132/71, pulse 84, room air saturation 99%. ABDOMEN: Shows low transverse scar. The abdomen is soft. There are no masses, tenderness, or hepatosplenomegaly. EXTREMITIES: Showed a scar over the right knee. NECK: Supple. LABORATORY DATA: Hemoglobin is 8.0, down from 13 at the time of her surgery on March 19. IMPRESSION: The patient most likely has an upper GI bleed from peptic ulcer from taking aspirin. The patient has been started on pantoprazole and n.p.o. I plan on proceeding with an EGD today for further evaluation.
--- NOTE | 2018-04-05 14:37 | History & Physical Report ---
Date of Service April 05, 2018 History of Present Illness Chief Complaint: Melena Primary Care Provider: Hossein Choudhury MD For EGD Allergies Allergy/AdvReac Type Severity Reaction Status Date / Time pollen extracts Allergy Intermediate ITCHY Verified 04/04/18 17:12 EYES, SNEEZING, CONGESTION Sulfa (Sulfonamide Allergy Unknown CAN'T Verified 04/04/18 17:12 Antibiotics) REMEMBER guaifenesin AdvReac Intermediate nausea Verified 04/04/18 17:12 hydrocodone AdvReac Intermediate nausea Verified 04/04/18 17:12 metronidazole AdvReac Intermediate nausea Verified 04/04/18 17:12 phenylephrine AdvReac Intermediate nausea Verified 04/04/18 17:12 tramadol AdvReac Intermediate Nausea Verified 04/04/18 17:12 Home Medications Home Medications Medication Instructions Recorded Confirmed Type conjugated estrogens [Premarin] 0.3 mg PO 3XWK 10/29/17 04/04/18 History dicyclomine 10 mg PO BID 10/29/17 04/04/18 History indapamide 1.25 mg PO 5XWK 10/29/17 04/04/18 History levothyroxine [Synthroid] 100 mcg PO QAM 10/29/17 04/04/18 History lisinopril 10 mg PO QAM 10/29/17 04/04/18 History potassium chloride [Klor-Con M20] 20 meq PO QAM 10/29/17 04/04/18 History cranberry 1 dose PO DAILY 02/26/18 04/04/18 History cyclosporine [Restasis] 1 drp OPHTHALMIC (EYE) Q12H 02/26/18 04/04/18 History diltiazem HCl 300 mg PO QAM 02/26/18 04/04/18 History lactobacillus combination no.4 3,000 mmu cells PO DAILY 02/26/18 04/04/18 History [Probiotic] multivitamin 1 tab PO QAM 02/26/18 04/04/18 History aspirin [Ecotrin Low Strength] 81 mg PO BID 45 Days #90 tab 03/19/18 04/04/18 Rx acetaminophen [Pain Reliever] 1,000 mg PO Q6 03/31/18 04/04/18 History Saccharomyces boulardii [Florastor] 250 mg PO BID #20 cap 04/01/18 04/04/18 Rx cephalexin 500 mg PO BID 7 Days #14 cap 04/01/18 04/04/18 Rx Past Med/Surg History Medical History Arthritis Chronic back pain Degenerative disc disease GERD (gastroesophageal reflux disease) Hearing deficit R ZAMORANO Hypertension Hypothyroidism IBS (irritable bowel syndrome) Osteoporosis Osteoporosis Pelvic fracture Presence of pessary SVT (supraventricular tachycardia) Spinal stenosis Urinary incontinence Surgical History H/O vein stripping History of appendectomy Taken out during hysterectomy History of colonoscopy History of left hip replacement History of surgical removal of pilonidal cyst History of tonsillectomy History of total abdominal hysterectomy and bilateral salpingo-oophorectomy History of total left hip arthroplasty Nausea and vomiting after administration of anesthetic agent Family History Mother Colon cancer Father CAD (coronary artery disease) Hypertension Father Family history of diabetes mellitus Other Family history non-contributory Social History marital status: Current Living Situation: Spouse Other Information That Helps Us Care for You: No Feels Safe at Home: Yes Safety Concerns: Feels Safe At This Time Smoking Status: Never smoker Second Hand Exposure: No Hx Alcohol Use: No Hx Substance Use: No Beliefs That Will Affect Care: None Communication Ability: Effective Physical Exam 2 Vital Signs (Past 24 Hours): Last Vital Signs Temp 36.9 C 04/05/18 12:01 Pulse 79 04/05/18 12:01 Resp 18 04/05/18 12:01 BP 121/64 04/05/18 12:01 Pulse Ox 99 04/05/18 12:01 Constitutional: well developed and well nourished Respiratory: normal respiratory effort Cardiovascular: Rate/Rhythm: regular rate and regular rhythm Gastrointestinal (Abdomen): Percussion/Palpation: abdomen soft Code Status & VTE Plan VTE Prophylaxis Plan VTE Prophylaxis will be ordered: Yes
[2018-04-05] MEDS ORDERED: BENZOCAIN/TETRACA/BUTAM SPRAY 200 APPLN/20 GM SPRY EXT ONE (14:42)
[2018-04-05] MEDS ORDERED: LIDOCAINE HCL 2% 2 ML VIAL/AMP(20MG/ML) INFIL ONE (14:42)
[2018-04-05] MEDS ORDERED: fentaNYL citrate 100 MCG/2 ML VIAL ONE (14:43)
[2018-04-05] MEDS ORDERED: MIDAZOLAM HCL 1 MG/ML 2ML VIAL ONE (14:43)
[2018-04-05] MEDS ORDERED: KETAMINE HCL INJ 50 MG/ML 10 ML VIAL ONE (14:43)
[2018-04-05] MEDS ORDERED: SODIUM CHLORIDE 0.9% 1000ML 1,000 ML IV SCH (14:45)
--- NOTE | 2018-04-05 14:56 | Anesthesiology Consultation ---
Date of Service April 05, 2018 Assessment & Plan Chart Review Chart Review: Acceptable Risk for Surgery and Patient NOT seen in Pre Admission Testing Consults Requested none ASA ASA3 Proposed Anesthesia Anesthesia Type: MAC Risk / Benefits Reviewed With: PT / POA / Parent / Guardian NPO Date Last Intake of Fluids: 04/05/18 Date Last Intake of Solids: 04/04/18 Time Last Intake of Solids: 23:59 History Surgery Operation Date: 04/05/18 09:20 Proposed Procedures p Esophagogastroduodenoscopy Dr Johnny Turner Height/Weight Height: 5 ft 3 in Weight: 49 kg Allergies Allergy/AdvReac Type Severity Reaction Status Date / Time pollen extracts Allergy Intermediate ITCHY Verified 04/04/18 17:12 EYES, SNEEZING, CONGESTION Sulfa (Sulfonamide Allergy Unknown CAN'T Verified 04/04/18 17:12 Antibiotics) REMEMBER guaifenesin AdvReac Intermediate nausea Verified 04/04/18 17:12 hydrocodone AdvReac Intermediate nausea Verified 04/04/18 17:12 metronidazole AdvReac Intermediate nausea Verified 04/04/18 17:12 phenylephrine AdvReac Intermediate nausea Verified 04/04/18 17:12 tramadol AdvReac Intermediate Nausea Verified 04/04/18 17:12 Medications Home Medications Medication Instructions Recorded Confirmed Last Taken conjugated estrogens [Premarin] 0.3 mg PO 3XWK 10/29/17 04/04/18 03/30/18 dicyclomine 10 mg PO BID 10/29/17 04/04/18 03/31/18 AM indapamide 1.25 mg PO 5XWK 10/29/17 04/04/18 03/31/18 levothyroxine [Synthroid] 100 mcg PO QAM 10/29/17 04/04/18 03/31/18 lisinopril 10 mg PO QAM 10/29/17 04/04/18 03/31/18 potassium chloride [Klor-Con M20] 20 meq PO QAM 10/29/17 04/04/18 03/31/18 cranberry 1 dose PO DAILY 02/26/18 04/04/18 03/04/18 11:00 cyclosporine [Restasis] 1 drp OPHTHALMIC (EYE) Q12H 02/26/18 04/04/18 03/31/18 AM diltiazem HCl 300 mg PO QAM 02/26/18 04/04/18 03/31/18 lactobacillus combination no.4 3,000 mmu cells PO DAILY 02/26/18 04/04/18 09:00 [Probiotic] multivitamin 1 tab PO QAM 02/26/18 04/04/18 03/17/18 14:00 aspirin [Ecotrin Low Strength] 81 mg PO BID 45 Days #90 tab 03/19/18 04/04/18 AM acetaminophen [Pain Reliever] 1,000 mg PO Q6 03/31/18 04/04/18 03/31/18 Saccharomyces boulardii [Florastor] 250 mg PO BID #20 cap 04/01/18 04/04/18 Unknown cephalexin 500 mg PO BID 7 Days #14 cap 04/01/18 04/04/18 Unknown Active Medications Generic Name Dose Route Start Last Admin Trade Name Freq PRN Reason Stop Dose Admin Acetaminophen 1,000 mg 04/05/18 09:00 04/05/18 08:40 Tylenol PO 05/05/18 08:59 1,000 mg TID RENETTA Administration Aspirin 81 mg 04/04/18 21:27 04/04/18 22:47 Ecotrin Ectab PO 05/04/18 21:26 Not Given BID RENETTA Dicyclomine HCl 10 mg 04/04/18 21:27 04/05/18 08:40 Bentyl PO 05/04/18 21:26 10 mg BID RENETTA Administration Diltiazem HCl 300 mg 04/05/18 09:00 04/05/18 08:40 Cardizem Cd PO 05/05/18 08:59 300 mg QAM RENETTA Administration Heparin Sodium (Porcine) 5,000 units 04/04/18 21:27 04/04/18 22:47 Heparin Sodium (Porcine) SQ 05/04/18 21:26 Not Given Q12 RENETTA Potassium Chloride/Sodium Chloride 20 meq in 1,000 mls @ 100 mls/hr 04/04/18 21:27 04/05/18 08:38 Normal Saline W/20 Meq Kcl IV 05/04/18 21:26 100 mls/hr .Q10H RENETTA Administration Pantoprazole Sodium 40 mg/ 100 mls @ 20 mls/hr 04/05/18 01:15 04/05/18 11:11 Dextrose IV 05/05/18 01:14 20 mls/hr Q5H RENETTA Administration Levothyroxine Sodium 100 mcg 04/05/18 06:30 04/05/18 06:06 Synthroid PO 05/05/18 06:29 Not Given DAILYBB RENETTA Miscellaneous 1 ea 04/05/18 00:00 04/05/18 12:41 Order Awaiting Action N/A 05/05/18 00:00 1 ea QS RENETTA Administration Multivitamins 1 tab 04/05/18 09:00 04/05/18 12:40 Multivitamin Tab PO 05/05/18 08:59 Not Given QAM RENETTA Potassium Chloride 20 meq 04/05/18 09:00 04/05/18 12:40 Klor-Con M20 PO 05/05/18 08:59 Not Given QAM RENETTA Saccharomyces Boulardii 250 mg 04/04/18 21:27 04/05/18 12:40 Florastor PO 05/04/18 21:26 Not Given BID RENETTA Past Medical History Medical History Arthritis Chronic back pain Degenerative disc disease GERD (gastroesophageal reflux disease) Hearing deficit R ZAMORANO Hypertension Hypothyroidism IBS (irritable bowel syndrome) Osteoporosis Osteoporosis Pelvic fracture Presence of pessary SVT (supraventricular tachycardia) Spinal stenosis Urinary incontinence Past Family History Family History Mother Colon cancer Father CAD (coronary artery disease) Hypertension Father Family history of diabetes mellitus Other Family history non-contributory Past Surgical History Surgical History H/O vein stripping History of appendectomy Taken out during hysterectomy History of colonoscopy History of left hip replacement History of surgical removal of pilonidal cyst History of tonsillectomy History of total abdominal hysterectomy and bilateral salpingo-oophorectomy History of total left hip arthroplasty Nausea and vomiting after administration of anesthetic agent Social History Smoking Status: Never smoker Hx Alcohol Use: No Alcohol type: wine and hard liquor alcohol intake frequency: a few times a month Hx Substance Use: No substance use type: does not use Physical Exam Vital Signs Last Vital Signs Temp 36.9 C 04/05/18 12:01 Pulse 79 02/11/19 12:01 Resp 18 04/05/18 12:01 BP 121/64 04/05/18 12:01 Pulse Ox 99 04/05/18 12:01 Testing Laboratory Results 04/05/18 06:51 04/05/18 06:51 PT 10.9 Seconds (9.0-12.0) 04/05/18 06:51 INR 1.1 (0.9-1.1) 04/05/18 06:51 APTT 25.4 Seconds (21.0-31.0) 04/05/18 06:51
[2018-04-05] MEDS ORDERED: ATROPINE SULFATE 0.1 MG/ML 10ML SYR IV PRN (14:59)
[2018-04-05] MEDS ORDERED: ePHEDrine sulfate 50 MG/ML AMP IV PRN (14:59)
--- NOTE | 2018-04-05 15:30 | GI REPORT ---
Patient Name: Nanette Khoury Procedure Date: 04/05/2018 3:01 PM Date of : 1935 Admit Type: Inpatient Age: 82 Gender: Female Attending MD: Fernando Turner MD Procedure: Upper GI endoscopy Providers: Fernando Turner MD Referring MD: Referred Self Indications: Melena Medicines: Midazolam 2 mg IV, Fentanyl 50 micrograms IV, Ketamine 20 mg IV, Lidocaine 60 mg IV, Cetacaine spray Complications: No immediate complications. Estimated Blood Loss: Estimated blood loss: none. Procedure: Pre-Anesthesia Assessment: - Prior to the procedure, a History and Physical was performed, and patient medications, allergies and sensitivities were reviewed. The patient's tolerance of previous anesthesia was reviewed. - The risks and benefits of the procedure and the sedation options and risks were discussed with the patient. All questions were answered and informed consent was obtained. After obtaining informed consent, the endoscope was passed under direct vision. Throughout the procedure, the patient's blood pressure, pulse, and oxygen saturations were monitored continuously. The Endoscope was introduced through the mouth, and advanced to the second part of duodenum. The upper GI endoscopy was accomplished without difficulty. The patient tolerated the procedure well. Findings: The Z-line was regular and was found 40 cm from the incisors. The examined esophagus was normal. A few localized, 4 mm non-bleeding erosions were found in the gastric antrum. There were no stigmata of recent bleeding. Two non-bleeding cratered duodenal ulcers with a visible vessel were found in the duodenal bulb. The largest lesion was 15 mm in largest dimension. For hemostasis, one hemostatic clip was successfully placed (MR conditional). There was no bleeding during, or at the end, of the procedure. Estimated blood loss: none. Impression: - Z-line regular, 40 cm from the incisors. - Normal esophagus. - Non-bleeding erosive gastropathy. - Multiple non-bleeding duodenal ulcers with a visible vessel. Clip (MR conditional) was placed. - No specimens collected. Recommendation: - [facility]. - Clear liquid diet. Fernando Turner M.D. Fernando Turner MD 04/05/2018 3:29:30 PM This report has been signed electronically. Note Initiated On: 04/05/2018 3:01 PM Number of Addenda: 0 I attest to the content of the Intraoperative Record and orders documented therein, exceptions below {[id number]}
--- NOTE | 2018-04-05 15:55 | Anesthesiology Progress Note ---
Date of Service April 05, 2018 Anesthesia Post Procedure Vital Signs Vital Signs: Temp Pulse Pulse Resp BP BP BP 04/05/18 15:52 95 H 18 120/70 04/05/18 15:35 83 16 117/66 04/05/18 15:30 79 80 18 134/67 04/05/18 14:54 37 C 88 18 145/81 H 04/05/18 12:01 36.9 C 79 18 121/64 04/05/18 07:34 37.1 C 112 H 18 115/75 04/05/18 05:09 123/72 04/05/18 03:15 36.7 C 99 H 18 115/62 04/04/18 23:45 36.9 C 96 H 18 112/74 04/04/18 21:39 36.8 C 86 87 20 117/67 04/04/18 20:56 88 18 110/75 04/04/18 19:57 20 132/71 04/04/18 18:51 84 18 131/68 04/04/18 16:29 36.5 C 20 59/39 L Pulse Ox 04/05/18 15:52 99 04/05/18 15:35 99 04/05/18 15:30 99 04/05/18 14:54 99 04/05/18 12:01 99 04/05/18 07:34 99 04/05/18 05:09 04/05/18 03:15 99 04/04/18 23:45 94 04/04/18 21:39 100 04/04/18 20:56 99 04/04/18 19:57 99 04/04/18 18:51 100 04/04/18 16:29 99 Notes Mental Status: alert / awake / arousable Patient Amnestic to Procedure: Yes Nausea / Vomiting: adequately controlled Pain: adequately controlled Airway Patency, RR, SpO2: stable & adequate BP & HR: stable & adequate Hydration State: stable & adequate Anesthetic Complications: no major complications apparent
--- NOTE | 2018-04-05 16:00 | Family Medicine Progress Note ---
Date of Service April 05, 2018 Assessment & Plan (1) Near syncope: 82 y/o F presented with progressively worsened generalized weakness and hypotension and tachycardia. 1) Acute blood loss Anemia -reports of black stools. Likely 2/2 upper GI bleed from peptic ulcer from ASA use -Protonix drip -NPO -trend H/H. This AM 8.0/23.7. Transfuse as needed. -GI consult: EGD showed multiple non-bleeding duodenal ulcers with a visible vessel. Clip was placed. Transition to clear liquid diet 2) Near syncope/ generalized weakness 4) Hypotension/Hypovolemic shock -Likely from GI bleeding and hypovolemia with already having slow recovery from knee replacement surgery, decreased oral intake for both liquids and solids associated with relatively decreased activity and side effect of medications, electrolyte abnormalities -Hold antihypertensives including diltiazem, indapamide and lisinopril. -Continue IVF rehydration -Cont trend serial CBC with differential, chemistry profile and magnesium levels. 3) Hyponatremia / Hypokalemia -Likely secondary to diuretic while having decreased oral intake -Na resolving. K 3.1 today --> Mg and K+ repleted today. Will recheck in AM 5) h/o SVT -The tachycardia that she had at home and earlier in the hospital assessment was more physiologic and appropriate with decreased intravascular volume. With IV fluid rehydration, heart rate has been in the mid 80s to low 90s while here 6) Hypothyroidism -Cont levothyroxine sodium at 100 mcg p.o. daily SCD, Supervising Physician Co-Signing Physician Notes Resident Physician Supervision Note: I independently interviewed and examined the patient and verified the fajardo history and physical, reviewed labs and image studies, discussed the case with the resident Dr. Arreola and agree with the findings and care plan. Subjective 82 y/o F found in bed this AM in NAD. Reports no acute overnight events. No issues with ambulation. Pt and nursing reports black stools yesterday and today. Pt made NPO. Pt has no other acute concerns or complaints other than wanting a private room. Review of Systems All systems reviewed & are unremarkable except as noted in HPI & below Physical Exam 2 Vital Signs (Past 24 Hours): Last Vital Signs Temp 37 C 04/05/18 14:54 Pulse 95 H 04/05/18 15:52 Resp 18 04/05/18 15:52 BP 120/70 04/05/18 15:52 Pulse Ox 99 04/05/18 15:52 Constitutional: WD/WN, vitals as above Eyes: PERRL, conjunctivae normal, anicteric sclerae ENMT: external ear and nose normal, oropharynx normal Respiratory: normal respiratory effort, lungs clear to auscultation Cardiovascular: RRR, no murmur, no edema Gastrointestinal (Abdomen): normal bowel sounds, soft, nontender, no hepatosplenomegaly Skin: no rashes, warm and dry Psychiatric: A+Ox3, euthymic affect Results & Data Laboratory Results Laboratory Results - last 24 hr 04/04/18 04/04/18 04/04/18 16:45 16:45 16:45 WBC 15.20 H RBC 4.30 Hgb 12.4 POC Hgb Hct 36.8 L POC Hct MCV 85.6 MCH 28.8 MCHC 33.7 RDW Std Deviation 50.5 H RDW Coeff of Brandan 16.2 H Plt Count 617 H MPV 9.1 Immature Gran % (Auto) 0.7 Neut % (Auto) 71.2 Lymph % (Auto) 18.4 [place] % (Auto) 8.7 Eos % (Auto) 0.5 Baso % (Auto) 0.5 Immature Gran # (Auto) 0.10 H Neut # (Auto) 10.85 H Lymph # (Auto) 2.79 [place] # (Auto) 1.32 H Eos # (Auto) 0.07 Baso # (Auto) 0.07 RBC Morphology PT 11.1 INR 1.1 APTT 26.1 PTT Ratio 1.0 POC Sodium Sodium 128 L POC Potassium Potassium 3.4 L POC Chloride Chloride 94 L Carbon Dioxide 22 POC Total CO2 Anion Gap 11.0 POC Anion Gap POC BUN BUN 41 H Creatinine 0.87 POC Creatinine Est Cr Clr Drug Dosing 39.2 Est GFR ( Amer) 72.4 Est GFR (Non-Af Amer) 62.5 BUN/Creatinine Ratio 46.8 H Glucose 116 H POC Glucose (other) Osmolality POC Lactic Acid Norberto Calcium 8.5 POC Ioniz Calcium [place] Magnesium 1.8 Total Bilirubin 0.6 AST 21 ALT 22 Alkaline Phosphatase 71 POC Troponin I Troponin I Total Protein 7.0 Albumin 2.8 L Globulin 4.2 H Albumin/Globulin Ratio 0.7 L Lipase 206 Urine Osmolality 0204/04/18 04/04/18 16:45 16:58 17:16 WBC RBC Hgb POC Hgb Hct POC Hct MCV MCH MCHC RDW Std Deviation RDW Coeff of Brandan Plt Count MPV Immature Gran % (Auto) Neut % (Auto) Lymph % (Auto) [place] % (Auto) Eos % (Auto) Baso % (Auto) Immature Gran # (Auto) Neut # (Auto) Lymph # (Auto) [place] # (Auto) Eos # (Auto) Baso # (Auto) RBC Morphology PT INR APTT PTT Ratio POC Sodium Sodium POC Potassium Potassium POC Chloride Chloride Carbon Dioxide POC Total CO2 Anion Gap POC Anion Gap POC BUN BUN Creatinine POC Creatinine Est Cr Clr Drug Dosing Est GFR ( Amer) Est GFR (Non-Af Amer) BUN/Creatinine Ratio Glucose POC Glucose (other) Osmolality 280 POC Lactic Acid Norberto 2.63 H Calcium POC Ioniz Calcium [place] Magnesium Total Bilirubin AST ALT Alkaline Phosphatase POC Troponin I < 0.03 Troponin I Total Protein Albumin Globulin Albumin/Globulin Ratio Lipase Urine Osmolality 04/04/18 04/04/18 04/04/18 17:20 18:41 21:41 WBC RBC Hgb POC Hgb 10.9 L Hct POC Hct 32 L MCV MCH MCHC RDW Std Deviation RDW Coeff of Brandan Plt Count MPV Immature Gran % (Auto) Neut % (Auto) Lymph % (Auto) [place] % (Auto) Eos % (Auto) Baso % (Auto) Immature Gran # (Auto) Neut # (Auto) Lymph # (Auto) [place] # (Auto) Eos # (Auto) Baso # (Auto) RBC Morphology PT INR APTT PTT Ratio POC Sodium 129 L Sodium POC Potassium 3.6 Potassium POC Chloride 98 L Chloride Carbon Dioxide POC Total CO2 19 L Anion Gap POC Anion Gap 17.0 POC BUN 33 H BUN Creatinine POC Creatinine 0.6 Est Cr Clr Drug Dosing Est GFR ( Amer) Est GFR (Non-Af Amer) BUN/Creatinine Ratio Glucose POC Glucose (other) 109 H Osmolality POC Lactic Acid Norberto Calcium POC Ioniz Calcium [place] 1.02 L Magnesium Total Bilirubin AST ALT Alkaline Phosphatase POC Troponin I Troponin I < 0.015 Total Protein Albumin Globulin Albumin/Globulin Ratio Lipase Urine Osmolality 527 04/04/18 04/05/18 04/05/18 22:53 06:51 06:51 WBC 9.09 RBC 2.81 L Hgb 9.6 L 8.0 L POC Hgb Hct 28.6 L 23.7 L POC Hct MCV 84.3 MCH 28.5 MCHC 33.8 RDW Std Deviation 50.0 H RDW Coeff of Brandan 16.3 H Plt Count 437 H MPV 8.7 Immature Gran % (Auto) 0.6 Neut % (Auto) 61.2 Lymph % (Auto) 27.4 [place] % (Auto) 9.8 Eos % (Auto) 0.7 Baso % (Auto) 0.3 Immature Gran # (Auto) 0.05 H Neut # (Auto) 5.57 Lymph # (Auto) 2.49 [place] # (Auto) 0.89 H Eos # (Auto) 0.06 Baso # (Auto) 0.03 RBC Morphology Unremarkable PT 10.9 INR 1.1 APTT 25.4 PTT Ratio 1.0 POC Sodium Sodium POC Potassium Potassium POC Chloride Chloride Carbon Dioxide POC Total CO2 Anion Gap POC Anion Gap POC BUN BUN Creatinine POC Creatinine Est Cr Clr Drug Dosing Est GFR ( Amer) Est GFR (Non-Af Amer) BUN/Creatinine Ratio Glucose POC Glucose (other) Osmolality POC Lactic Acid Norberto Calcium POC Ioniz Calcium [place] Magnesium Total Bilirubin AST ALT Alkaline Phosphatase POC Troponin I Troponin I Total Protein Albumin Globulin Albumin/Globulin Ratio Lipase Urine Osmolality 04/05/18 06:51 WBC RBC Hgb POC Hgb Hct POC Hct MCV MCH MCHC RDW Std Deviation RDW Coeff of Brandan Plt Count MPV Immature Gran % (Auto) Neut % (Auto) Lymph % (Auto) [place] % (Auto) Eos % (Auto) Baso % (Auto) Immature Gran # (Auto) Neut # (Auto) Lymph # (Auto) [place] # (Auto) Eos # (Auto) Baso # (Auto) RBC Morphology PT INR APTT PTT Ratio POC Sodium Sodium 134 L POC Potassium Potassium 3.1 L POC Chloride Chloride 103 Carbon Dioxide 21 POC Total CO2 Anion Gap 10.0 POC Anion Gap POC BUN BUN 38 H Creatinine 0.55 L D POC Creatinine Est Cr Clr Drug Dosing 62.1 Est GFR ( Amer) 102.0 Est GFR (Non-Af Amer) 88.0 BUN/Creatinine Ratio 67.9 H Glucose 99 POC Glucose (other) Osmolality POC Lactic Acid Norberto Calcium 7.3 L POC Ioniz Calcium [place] Magnesium Total Bilirubin 0.4 AST 16 ALT 15 Alkaline Phosphatase 48 POC Troponin I Troponin I Total Protein 5.1 L D Albumin 2.2 L Globulin 2.9 Albumin/Globulin Ratio 0.8 L Lipase Urine Osmolality Medications Administered Current Inpatient Medications Acetaminophen (Tylenol) 1,000 mg PO TID [facility] Stop: 05/05/18 08:59 Last Admin: 04/05/18 08:40 Dose: 1,000 mg Al Hydrox/Mg Hydrox/Simethicone (Maalox) 15 ml PO Q4H PRN PRN Reason: Dyspepsia Stop: 05/04/18 21:26 Atropine Sulfate (Atropine Sulfate) 0.5 mg IV Q1M PRN PRN Reason: PACU Use-HR<40 &/or Bradycardi Stop: 04/05/18 19:59 Dicyclomine HCl (Bentyl) 10 mg PO BID [facility] Stop: 05/04/18 21:26 Last Admin: 04/05/18 08:40 Dose: 10 mg Diltiazem HCl (Cardizem Cd) 300 mg PO QAM [facility] Stop: 05/05/18 08:59 Last Admin: 04/05/18 08:40 Dose: 300 mg Ephedrine Sulfate (Ephedrine Sulfate) 5 mg IV Q5M PRN PRN Reason: PACU Use Only-SBP<90 mmHg Stop: 04/05/18 19:59 Estrogens Conjugated (Premarin) 0.3 mg PO SuTuFr@0900 [facility] Stop: 05/06/18 08:59 Potassium Chloride/Sodium Chloride (Normal Saline W/20 Meq Kcl) 20 meq in 1, 000 mls @ 100 mls/hr IV .Q10H [facility] Stop: 05/04/18 21:26 Last Admin: 04/05/18 08:38 Dose: 100 mls/hr Pantoprazole Sodium 40 mg/ (Dextrose) 100 mls @ 20 mls/hr IV Q5H [facility] Stop: 05/05/18 01:14 Last Admin: 04/05/18 11:11 Dose: 20 mls/hr Sodium Chloride (Nss 1000ml) 1,000 mls @ 15 mls/hr IV .Q24H [facility] Stop: 05/05/18 14:44 Indapamide (Lozol) 1.25 mg PO SuTuWeFrSa@0900 [facility] Stop: 05/06/18 08:59 Levothyroxine Sodium (Synthroid) 100 mcg PO DAILYBB [facility] Stop: 05/05/18 06:29 Last Admin: 04/05/18 06:06 Dose: Not Given Magnesium Hydroxide (Milk Of Magnesia) 30 ml PO Q12H PRN PRN Reason: Constipation Stop: 05/04/18 21:26 Miscellaneous (Order Awaiting Action) 1 ea N/A QS [facility] Stop: 05/05/18 00:00 Last Admin: 04/05/18 12:41 Dose: 1 ea Multivitamins (Multivitamin Tab) 1 tab PO QAM [facility] Stop: 05/05/18 08:59 Last Admin: 04/05/18 12:40 Dose: Not Given Ondansetron HCl (Zofran) 4 mg IV Q6H PRN PRN Reason: NAUSEA/VOMITING Stop: 05/04/18 21:26 Polyethylene Glycol (Miralax Powder Packet) 17 gm PO DAILY PRN PRN Reason: Constipation Stop: 05/04/18 21:26 Potassium Chloride (Klor-Con M20) 20 meq PO QAM [facility] Stop: 05/05/18 08:59 Last Admin: 04/05/18 12:40 Dose: Not Given Saccharomyces Boulardii (Florastor) 250 mg PO BID [facility] Stop: 05/04/18 21:26 Last Admin: 04/05/18 12:40 Dose: Not Given Resident Activity Tracking Resident Involvement: Resident Care Provided Care Provided: Adult Hospital Medicine
[2018-04-05] MEDS ORDERED: MAGNESIUM SULFATE / D5W 1 GM/100 ML BAG IV ONE (16:28)
--- NOTE | 2018-04-05 17:29 | Progress Note ---
DATE: 04/05/2018 The patient presented to the endoscopy center for upper endoscopy due to melena and presyncope with anemia. The patient underwent an upper endoscopy, which showed a few gastric erosions. The esophagus was normal. In the duodenal bulb, there were 2 ulcers on opposite rice, one on the anterior, one on the posterior wall. On the anterior wall, there was a visible vessel protruding through the superior aspect of the ulcer. This was clipped with a Hemoclip. There was no active bleeding during or after the procedure. The area was sprayed with a water jet spray and no bleeding was elicited. There were no stigmata of bleeding from the posterior wall ulcer. The patient tolerated the procedure well. IMPRESSION: The patient has 2 duodenal ulcers undoubtedly from the aspirin that she has been taking. We will need to stop the aspirin and continue the Protonix. I put her on a bland clear liquid diet for now and advance as tolerated. We will need to continue monitoring her blood count, and if it dips below 8, she will need to have blood replacement.
[2018-04-05] MEDS: POTASSIUM CHLORIDE / WTR 10 MEQ/100 ML PLCT IV SCH ×4 (18:22→21:43)
[2018-04-05] MEDS ORDERED: SODIUM CHLORIDE 0.9% 250 ML IV PRN (19:13)
[2018-04-06] MEDS ORDERED: SODIUM CHLORIDE 0.65% NA SOLN 45 ML (OCEAN) ONE (00:55)
[2018-04-06] MEDS: PANTOprazole 40 MG in DEXTROSE 5% 100 ML IV SCH ×5 (02:13→20:59)
[2018-04-06] MEDS: NSS + 20MEQ KCL 20 MEQ/1,000 ML BAG IV SCH (03:00)
[2018-04-06] MEDS: LEVOTHYROXINE SODIUM 100 MCG TABLET PO SCH (06:00)
[2018-04-06 06:25] LABS: Basophils # (auto) 0.08 K/uL (0-0.2); Eosinophils # (auto) 0.37 K/uL (0-0.5); Eosinophils % (auto) 4.6 %; Hematocrit (blood only) 27.9 % (37-47); Hemoglobin 9.7 g/dL (12.0-16.0); Immature Granulocytes # (auto) 0.06 K/uL (0.00-0.02); Immature Granulocytes % (auto) 0.7 %; Lymphocytes # (auto) 1.74 K/uL (1.2-3.4); Lymphocytes % (auto) 21.7 %; Mean Corpuscular Hgb Conc 34.8 g/dL (32-36); Mean Corpuscular Volume 84.8 fL (80-100); Mean Platelet Volume 8.8 fL (7.4-10.4); Monocytes # (auto) 0.76 K/uL (0.11-0.59); Monocytes % (auto) 9.5 %; Neutrophils # (auto) 5.02 K/uL (1.4-6.5); Neutrophils % (auto) 62.5 %; Platelet Count 333 K/uL (130-400); RDW Coefficient of Variation 15.5 % (11.5-14.5); RDW Standard Deviation 47.8 fL (36.4-46.3); Red Blood Count 3.29 M/uL (4.2-5.4); White Blood Count 8.03 K/uL (4.8-10.8)
[2018-04-06 07:00] LABS: INR 1.1 (0.9-1.1); Prothrombin Time 10.8 Seconds (9.0-12.0)
[2018-04-06] MEDS: RESTASIS~ORDER AWAITING ACTION SCH ×3 (07:11→23:21)
[2018-04-06 07:14] LABS: Albumin Globulin Ratio 0.9 (0.9-2); Albumin Level 2.4 gm/dl (3.4-5.0); BUN Creatinine Ratio 27.8 (10-20); Bilirubin,Total 1.1 mg/dl (0.2-1); Calcium 7.3 mg/dl (8.5-10.1); Creatinine Clr Calc Pharmacy 77.9 ml/min; Est GFR (African American) 109.7; Est GFR (Non-African American) 94.7; Globulin 2.8 gm/dl (2.5-4.0); Magnesium 1.7 mg/dl (1.8-2.4); Potassium 3.8 mmol/L (3.5-5.1); Total Protein 5.2 gm/dl (6.4-8.2)
[2018-04-06] MEDS: MULTIVITAMIN TAB PO SCH (07:35)
[2018-04-06] MEDS: ACETAMINOPHEN 500 MG TAB PO SCH ×3 (07:36→20:59)
[2018-04-06] MEDS: SACCHAROMYCES BOULARDII 250 MG CAP PO SCH ×2 (07:37→20:59)
[2018-04-06] MEDS: dilTIAZem HCL 300 MG CAPCR PO SCH (07:37)
[2018-04-06] MEDS: DICYCLOMINE HCL 10 MG CAP PO SCH ×2 (07:37→20:59)
[2018-04-06] MEDS: POTASSIUM CHLORIDE 20 MEQ TABCR PO SCH (07:37)
[2018-04-06] MEDS ORDERED: Nursing to Pharmacy Communication ONE (08:09)
--- NOTE | 2018-04-06 08:11 | Anesthesiology Progress Note ---
Date of Service April 06, 2018 Anesthesia Post Procedure Vital Signs Vital Signs: Temp Pulse Pulse Pulse Resp BP BP 04/06/18 07:06 36.8 C 81 17 148/77 H 04/06/18 03:57 37.0 C 77 18 137/71 04/06/18 01:45 37.0 C 85 18 124/61 04/06/18 00:55 36.8 C 76 19 125/67 04/06/18 00:39 79 18 130/66 04/06/18 00:02 36.9 C 77 18 120/62 04/05/18 23:55 37.1 C 79 133/66 04/05/18 21:36 37.2 C 82 20 146/72 H 04/05/18 19:07 36.6 C 77 16 140/71 04/05/18 16:15 36.8 C 77 18 133/75 04/05/18 16:09 81 18 04/05/18 15:59 78 18 04/05/18 15:52 95 H 18 120/70 04/05/18 15:35 83 16 117/66 04/05/18 15:30 79 80 18 134/67 04/05/18 14:54 37 C 88 18 04/05/18 12:01 36.9 C 79 18 121/64 BP Pulse Ox 04/06/18 07:06 85 L 04/06/18 03:57 98 04/06/18 01:45 99 04/06/18 00:55 98 04/06/18 00:39 98 04/06/18 00:02 97 04/05/18 23:55 98 04/05/18 21:36 04/05/18 19:07 100 04/05/18 16:15 100 04/05/18 16:09 123/65 100 04/05/18 15:59 123/65 99 04/05/18 15:52 99 04/05/18 15:35 99 04/05/18 15:30 99 04/05/18 14:54 145/81 H 99 04/05/18 12:01 99 Notes Mental Status: alert / awake / arousable and participated in evaluation Nausea / Vomiting: adequately controlled Pain: adequately controlled Airway Patency, RR, SpO2: stable & adequate BP & HR: stable & adequate Hydration State: stable & adequate Anesthetic Complications: no major complications apparent
[2018-04-06] MEDS ORDERED: INDAPAMIDE 1.25 MG TAB PO SCH (09:00)
[2018-04-06] MEDS ORDERED: ESTROGENS, CONJUGATED 0.3 MG TAB PO SCH ×2 (09:00→21:00)
[2018-04-06 10:55] LABS: Hematocrit (blood only) 30.3 % (37-47); Hemoglobin 10.6 g/dL (12.0-16.0)
[2018-04-06] MEDS: cephALEXin 500 MG CAP PO SCH ×2 (12:33→20:59)
[2018-04-06 16:41] LABS: Hematocrit (blood only) 28.3 % (37-47); Hemoglobin 9.9 g/dL (12.0-16.0)
--- NOTE | 2018-04-06 17:13 | Family Medicine Progress Note ---
Date of Service April 06, 2018 Assessment & Plan (1) Near syncope: 82 y/o F presented with progressively worsened generalized weakness and hypotension and tachycardia. 1) Acute blood loss Anemia -pt received 2 units pRBCs overnight. Last Hgb 9.9. Cont trend h/h. -reports of black stools. Likely 2/2 upper GI bleed from peptic ulcer from ASA use -Protonix drip -GI consult: EGD showed multiple non-bleeding duodenal ulcers with a visible vessel. Clip was placed. Transition to clear liquid diet and advance as tolerated 2) Near syncope/ generalized weakness Hypovolemic shock - resolved -Likely from GI bleeding and hypovolemia with already having slow recovery from knee replacement surgery, decreased oral intake for both liquids and solids associated with relatively decreased activity and side effect of medications, electrolyte abnormalities -Hold antihypertensives including diltiazem, indapamide and lisinopril. -IVF stopped (2/2 hyponatrema, low Cr, elevated BP) -Cont trend serial CBC with differential, chemistry profile and magnesium levels. 3) Hyponatremia / Hypokalemia -Likely secondary to diuretic while having decreased oral intake -Na 131. K 3.8 today . Cont monitor electrolytes 4) h/o SVT -The tachycardia that she had at home and earlier in the hospital assessment was more physiologic and appropriate with decreased intravascular volume. With IV fluid rehydration, heart rate has been in the mid 80s to low 90s while here 5) Hypothyroidism -Cont levothyroxine sodium at 100 mcg p.o. daily 6) Acute UTI -dysuria at present -ER visit 04/01: UA suspicious for infection with 3+ LE, WBC>30, and 2+ bacteria, albeit with epithelial cells>30 -placed on keflex 250 BID Supervising Physician Co-Signing Physician Notes Resident Physician Supervision Note: I independently interviewed and examined the patient and verified the fajardo history and physical, reviewed labs and image studies, discussed the case with the resident Dr. Arreola and agree with the findings and care plan. Subjective 82 y/o F found in bed this AM in NAD. Reports no acute overnight events. No issues with ambulation. Pt and nursing reports BM this AM that had little bit of blood in it, but not like yesterday where it was black. Pt has new complaint of dysuria. Pt tolerating clear liquids s/p EGD. Pt has no other acute concerns or complaints. Review of Systems All systems reviewed & are unremarkable except as noted in HPI & below Physical Exam 2 Vital Signs (Past 24 Hours): Last Vital Signs Temp 36.7 C 04/06/18 16:00 Pulse 70 04/06/18 16:00 Resp 18 04/06/18 16:00 BP 136/72 04/06/18 16:00 Pulse Ox 98 04/06/18 16:00 Constitutional: WD/WN, vitals as above Eyes: PERRL, conjunctivae normal, anicteric sclerae ENMT: external ear and nose normal, oropharynx normal Respiratory: normal respiratory effort, lungs clear to auscultation Cardiovascular: RRR, no murmur, no edema Gastrointestinal (Abdomen): normal bowel sounds, soft, nontender, no hepatosplenomegaly Skin: no rashes, warm and dry Psychiatric: A+Ox3, euthymic affect Results & Data Laboratory Results Laboratory Results - last 24 hr 04/04/18 04/05/18 04/06/18 16:56 18:36 06:12 WBC 8.03 RBC 3.29 L Hgb 7.0 L 9.7 L Hct 27.9 L MCV 84.8 MCH 29.5 MCHC 34.8 RDW Std Deviation 47.8 H RDW Coeff of Brandan 15.5 H Plt Count 333 MPV 8.8 Immature Gran % (Auto) 0.7 Neut % (Auto) 62.5 Lymph % (Auto) 21.7 [place] % (Auto) 9.5 Eos % (Auto) 4.6 Baso % (Auto) 1.0 Immature Gran # (Auto) 0.06 H Neut # (Auto) 5.02 Lymph # (Auto) 1.74 [place] # (Auto) 0.76 H Eos # (Auto) 0.37 Baso # (Auto) 0.08 PT INR Sodium Potassium Chloride Carbon Dioxide Anion Gap BUN Creatinine Est Cr Clr Drug Dosing Est GFR ( Amer) Est GFR (Non-Af Amer) BUN/Creatinine Ratio Glucose Calcium Magnesium Total Bilirubin AST ALT Alkaline Phosphatase Total Protein Albumin Globulin Albumin/Globulin Ratio Blood Type A Positive Antibody Screen NEGATIVE Crossmatch See Detail 04/06/18 04/06/18 04/06/18 06:12 06:12 10:33 WBC RBC Hgb 10.6 L Hct 30.3 L MCV MCH MCHC RDW Std Deviation RDW Coeff of Brandan Plt Count MPV Immature Gran % (Auto) Neut % (Auto) Lymph % (Auto) [place] % (Auto) Eos % (Auto) Baso % (Auto) Immature Gran # (Auto) Neut # (Auto) Lymph # (Auto) [place] # (Auto) Eos # (Auto) Baso # (Auto) PT 10.8 INR 1.1 Sodium 131 L Potassium 3.8 D Chloride 104 Carbon Dioxide 20 L Anion Gap 7.0 BUN 12 D Creatinine 0.44 L Est Cr Clr Drug Dosing 77.9 Est GFR ( Amer) 109.7 Est GFR (Non-Af Amer) 94.7 BUN/Creatinine Ratio 27.8 H Glucose 84 Calcium 7.3 L Magnesium 1.7 L Total Bilirubin 1.1 H D AST 23 ALT 16 Alkaline Phosphatase 39 L Total Protein 5.2 L Albumin 2.4 L Globulin 2.8 Albumin/Globulin Ratio 0.9 Blood Type Antibody Screen Crossmatch 04/06/18 16:33 WBC RBC Hgb 9.9 L Hct 28.3 L MCV MCH MCHC RDW Std Deviation RDW Coeff of Brandan Plt Count MPV Immature Gran % (Auto) Neut % (Auto) Lymph % (Auto) [place] % (Auto) Eos % (Auto) Baso % (Auto) Immature Gran # (Auto) Neut # (Auto) Lymph # (Auto) [place] # (Auto) Eos # (Auto) Baso # (Auto) PT INR Sodium Potassium Chloride Carbon Dioxide Anion Gap BUN Creatinine Est Cr Clr Drug Dosing Est GFR ( Amer) Est GFR (Non-Af Amer) BUN/Creatinine Ratio Glucose Calcium Magnesium Total Bilirubin AST ALT Alkaline Phosphatase Total Protein Albumin Globulin Albumin/Globulin Ratio Blood Type Antibody Screen Crossmatch Medications Administered Current Inpatient Medications Acetaminophen (Tylenol) 1,000 mg PO TID [facility] Stop: 05/05/18 08:59 Last Admin: 04/06/18 12:32 Dose: Not Given Al Hydrox/Mg Hydrox/Simethicone (Maalox) 15 ml PO Q4H PRN PRN Reason: Dyspepsia Stop: 05/04/18 21:26 Cephalexin HCl (Keflex) 500 mg PO BID [facility] Stop: 04/11/18 11:29 Last Admin: 04/06/18 12:33 Dose: 500 mg Dicyclomine HCl (Bentyl) 10 mg PO BID [facility] Stop: 05/04/18 21:26 Last Admin: 04/06/18 07:37 Dose: 10 mg Diltiazem HCl (Cardizem Cd) 300 mg PO QAM [facility] Stop: 05/05/18 08:59 Last Admin: 04/06/18 07:37 Dose: 300 mg Estrogens Conjugated (Premarin) 0.3 mg PO SuTuFr@2100 [facility] Stop: 05/06/18 08:59 Pantoprazole Sodium 40 mg/ (Dextrose) 100 mls @ 20 mls/hr IV Q5H [facility] Stop: 05/05/18 01:14 Last Admin: 04/06/18 16:32 Dose: 20 mls/hr Sodium Chloride (Nss 250ml) 250 mls @ 15 mls/hr IV .[id number] PRN PRN Reason: For Transfusion Stop: 05/05/18 19:12 Indapamide (Lozol) 1.25 mg PO SuTuWeFrSa@0900 [facility] Stop: 05/06/18 08:59 Last Admin: 04/06/18 08:54 Dose: Not Given Levothyroxine Sodium (Synthroid) 100 mcg PO DAILYBB [facility] Stop: 05/05/18 06:29 Last Admin: 04/06/18 06:00 Dose: 100 mcg Magnesium Hydroxide (Milk Of Magnesia) 30 ml PO Q12H PRN PRN Reason: Constipation Stop: 05/04/18 21:26 Miscellaneous (Order Awaiting Action) 1 ea N/A QS [facility] Stop: 05/05/18 00:00 Last Admin: 04/06/18 15:17 Dose: Not Given Multivitamins (Multivitamin Tab) 1 tab PO QAM [facility] Stop: 05/05/18 08:59 Last Admin: 04/06/18 07:35 Dose: Not Given Ondansetron HCl (Zofran) 4 mg IV Q6H PRN PRN Reason: NAUSEA/VOMITING Stop: 05/04/18 21:26 Polyethylene Glycol (Miralax Powder Packet) 17 gm PO DAILY PRN PRN Reason: Constipation Stop: 05/04/18 21:26 Potassium Chloride (Klor-Con M20) 20 meq PO QAM [facility] Stop: 05/05/18 08:59 Last Admin: 04/06/18 07:37 Dose: 20 meq Saccharomyces Boulardii (Florastor) 250 mg PO BID [facility] Stop: 05/04/18 21:26 Last Admin: 04/06/18 07:37 Dose: 250 mg Resident Activity Tracking Resident Involvement: Resident Care Provided Care Provided: Adult Hospital Medicine
--- NOTE | 2018-04-06 18:17 | Progress Note ---
DATE: 04/06/2018 REASON FOR EVALUATION: Duodenal ulcers with bleeding. SUBJECTIVE: The patient is having a little bit of epigastric pain. She is tolerating bland clear liquids. Blood pressure is 136/72, pulse 70, O2 saturations 98% on room air. The patient has had 2 brown bowel movements a day without any signs of obvious continued bleeding. She did receive 2 units of red blood cells yesterday for hemoglobin of 7; her hemoglobin today is 10.6 and she is feeling a little bit stronger. She is able to sit by the side of the bed and not get dizzy. She is off aspirin and blood thinners and has had sequential compression devices on both legs to prevent DVTs following her right knee replacement on 03/16. PHYSICAL EXAMINATION ABDOMEN: Soft. EXTREMITIES: She has compression devices on both legs. SKIN: [place] in color. IMPRESSION AND PLAN: The patient has 2 duodenal ulcers, one with a visible vessel that was clipped yesterday. It appears that her bleeding has stopped. Plan on advancing her to a regular bland diet today and hopefully switching her to oral Protonix tomorrow. I would recommend 2 weeks of a bland diet and outpatient followup with me in a month when she is discharged. I will continue to follow the patient.
[2018-04-06 19:20] LABS: Appearance Urine Cloudy (Clear); Bacteria Urine Automated Negative (Negative); Bilirubin Urine Negative (Negative); Blood Urine Negative (Negative); Color Urine Yellow; Epithelial Cell Urine Auto >30 /lpf (0-5); Glucose Urine UA Negative (Negative); Ketones Urine Negative (Negative); Leukocyte Esterase Urine 3+ (Negative); Nitrite Urine Negative (Negative); Protein Urine Negative (Negative); RBC Urine Automated 0-4 /hpf (0-4); Specific Gravity Urine 1.013 (1.000-1.030); Urobilinogen Urine Negative (Negative)
[2018-04-07] MEDS: PANTOprazole 40 MG in DEXTROSE 5% 100 ML IV SCH ×5 (03:20→22:24)
[2018-04-07] MEDS: LEVOTHYROXINE SODIUM 100 MCG TABLET PO SCH (05:53)
[2018-04-07 06:14] LABS: Basophils # (auto) 0.05 K/uL (0-0.2); Basophils % (auto) 0.7 %; Eosinophils # (auto) 0.56 K/uL (0-0.5); Eosinophils % (auto) 7.7 %; Hematocrit (blood only) 28.1 % (37-47); Hemoglobin 9.7 g/dL (12.0-16.0); Immature Granulocytes # (auto) 0.04 K/uL (0.00-0.02); Immature Granulocytes % (auto) 0.5 %; Lymphocytes # (auto) 1.58 K/uL (1.2-3.4); Lymphocytes % (auto) 21.6 %; Mean Corpuscular Hgb Conc 34.5 g/dL (32-36); Mean Corpuscular Volume 86.2 fL (80-100); Mean Platelet Volume 8.7 fL (7.4-10.4); Monocytes # (auto) 0.87 K/uL (0.11-0.59); Monocytes % (auto) 11.9 %; Neutrophils # (auto) 4.22 K/uL (1.4-6.5); Neutrophils % (auto) 57.6 %; Platelet Count 326 K/uL (130-400); RDW Coefficient of Variation 15.9 % (11.5-14.5); Red Blood Count 3.26 M/uL (4.2-5.4); White Blood Count 7.32 K/uL (4.8-10.8)
[2018-04-07 06:22] LABS: INR 1.1 (0.9-1.1); Prothrombin Time 10.9 Seconds (9.0-12.0)
[2018-04-07 06:52] LABS: Albumin Globulin Ratio 0.8 (0.9-2); Albumin Level 2.3 gm/dl (3.4-5.0); BUN Creatinine Ratio 13.6 (10-20); Bilirubin,Total 0.6 mg/dl (0.2-1); Calcium 7.6 mg/dl (8.5-10.1); Creatinine Clr Calc Pharmacy 71.1 ml/min; Est GFR (African American) 106.6; Globulin 2.9 gm/dl (2.5-4.0); Magnesium 1.7 mg/dl (1.8-2.4); Potassium 3.4 mmol/L (3.5-5.1); Total Protein 5.2 gm/dl (6.4-8.2)
[2018-04-07] MEDS: DICYCLOMINE HCL 10 MG CAP PO SCH ×2 (08:35→20:15)
[2018-04-07] MEDS: SACCHAROMYCES BOULARDII 250 MG CAP PO SCH ×2 (08:35→20:15)
[2018-04-07] MEDS: MULTIVITAMIN TAB PO SCH (08:35)
[2018-04-07] MEDS: dilTIAZem HCL 300 MG CAPCR PO SCH (08:35)
[2018-04-07] MEDS: POTASSIUM CHLORIDE 20 MEQ TABCR PO SCH (08:35)
[2018-04-07] MEDS: ACETAMINOPHEN 500 MG TAB PO SCH ×3 (08:36→20:19)
[2018-04-07] MEDS: cephALEXin 500 MG CAP PO SCH (08:36)
--- NOTE | 2018-04-07 10:25 | Family Medicine Progress Note ---
Date of Service April 07, 2018 Assessment & Plan (1) Generalized weakness: Near syncope: 82 y/o F presented with progressively worsened generalized weakness and hypotension and tachycardia. 1) Acute blood loss Anemia -Last Hgb 9.7. Cont trend h/h. -reports of black stools. Likely 2/2 upper GI bleed from peptic ulcer from ASA use -Protonix drip for 72 hrs. -GI consult: EGD showed multiple non-bleeding duodenal ulcers with a visible vessel. Clip was placed. Advancing to regular bland diet, hopefully switching her to oral Protonix tomorrow. Recommend 2 weeks of a bland diet and outpt f/u in 1 month when d/c 2) Near syncope/ generalized weakness -Hypovolemic shock - resolved -Likely from GI bleeding and hypovolemia with already having slow recovery from knee replacement surgery, decreased oral intake for both liquids and solids associated with relatively decreased activity and side effect of medications, electrolyte abnormalities -Hold antihypertensives including indapamide and lisinopril. Cont diltiazem. -IVF stopped (2/2 hyponatrema, low Cr, elevated BP) -Cont trend serial CBC with differential, chemistry profile and magnesium levels. -PT/OT ordered to help with ambulation 2/2 weakness s/p recent Knee replacement and post op DVT prophylaxis with Aspirin - will update the surgeon of patient status - On SCD and STEPHANY for DVT proph here - will continue at home 3) Hyponatremia / Hypokalemia -Likely secondary to diuretic while having decreased oral intake -Na 129. K 3.4 today. Cont monitor electrolytes. Should note improvement now that on solids. 4) h/o SVT -The tachycardia that she had at home and earlier in the hospital assessment was more physiologic and appropriate with decreased intravascular volume. With IV fluid rehydration, heart rate has been in the mid 80s to low 90s while here 5) Hypothyroidism -Cont levothyroxine sodium at 100 mcg p.o. daily 6) Acute UTI -dysuria resolving -ER visit 04/01: UA suspicious for infection with 3+ LE, WBC>30, and 2+ bacteria, albeit with epithelial cells>30 -placed on keflex 250 BID FULL DVT Prophylaxis: SCDs, Ambulation Dispo: Home after advancing diet/ switching to PO protonix Supervising Physician Co-Signing Physician Notes Resident Physician Supervision Note: I independently interviewed and examined the patient and verified the fajardo history and physical, reviewed labs and image studies, discussed the case with the resident Dr. Arreola and agree with the findings and care plan. Subjective 82 y/o F found in bed this AM in NAD. Reports no acute overnight events. Some issues with ambulation, will work with PT going forward. Pt has not had a BM yet. Pt tolerating advanced diet s/p EGD, had mashed potatoes/bread. Pt has no other acute concerns or complaints. Physical Exam 2 Vital Signs (Past 24 Hours): Last Vital Signs Temp 36.4 C L 04/07/18 07:50 Pulse 68 04/07/18 09:39 Resp 17 04/07/18 07:50 BP 132/79 04/07/18 07:50 Pulse Ox 97 04/07/18 07:50 Constitutional: WD/WN, vitals as above Eyes: PERRL, conjunctivae normal, anicteric sclerae ENMT: external ear and nose normal, oropharynx normal Respiratory: normal respiratory effort, lungs clear to auscultation Cardiovascular: RRR, no murmur, no edema Gastrointestinal (Abdomen): normal bowel sounds, soft, nontender, no hepatosplenomegaly Skin: no rashes, warm and dry Psychiatric: A+Ox3, euthymic affect Results & Data Laboratory Results Laboratory Results - last 24 hr 04/06/18 04/06/18 04/06/18 10:33 16:33 19:04 WBC RBC Hgb 10.6 L 9.9 L Hct 30.3 L 28.3 L MCV MCH MCHC RDW Std Deviation RDW Coeff of Brandan Plt Count MPV Immature Gran % (Auto) Neut % (Auto) Lymph % (Auto) Phillips % (Auto) Eos % (Auto) Baso % (Auto) Immature Gran # (Auto) Neut # (Auto) Lymph # (Auto) Phillips # (Auto) Eos # (Auto) Baso # (Auto) PT INR Sodium Potassium Chloride Carbon Dioxide Anion Gap BUN Creatinine Est Cr Clr Drug Dosing Est GFR ( Amer) Est GFR (Non-Af Amer) BUN/Creatinine Ratio Glucose Calcium Magnesium Total Bilirubin AST ALT Alkaline Phosphatase Total Protein Albumin Globulin Albumin/Globulin Ratio Urine Color Yellow Urine Appearance Cloudy H Urine pH 6.0 Ur Specific [place] 1.013 Urine Protein Negative Urine Glucose (UA) Negative Urine Ketones Negative Urine Blood Negative Urine Nitrite Negative Urine Bilirubin Negative Urine Urobilinogen Negative Ur Leukocyte Esterase 3+ H Urine WBC (Auto) 10-30 H Urine RBC (Auto) 0-4 U Hyaline Cast (Auto) 5-10 H U Epithel Cells (Auto) >30 H Urine Bacteria (Auto) Negative Urine Yeast Budding H 04/07/18 04/07/18 04/07/18 06:01 06:01 06:01 WBC 7.32 RBC 3.26 L Hgb 9.7 L Hct 28.1 L MCV 86.2 MCH 29.8 MCHC 34.5 RDW Std Deviation 49.0 H RDW Coeff of Brandan 15.9 H Plt Count 326 MPV 8.7 Immature Gran % (Auto) 0.5 Neut % (Auto) 57.6 Lymph % (Auto) 21.6 Phillips % (Auto) 11.9 Eos % (Auto) 7.7 Baso % (Auto) 0.7 Immature Gran # (Auto) 0.04 H Neut # (Auto) 4.22 Lymph # (Auto) 1.58 Phillips # (Auto) 0.87 H Eos # (Auto) 0.56 H Baso # (Auto) 0.05 PT 10.9 INR 1.1 Sodium 129 L Potassium 3.4 L Chloride 99 Carbon Dioxide 22 Anion Gap 8.0 BUN 6 L D Creatinine 0.48 L Est Cr Clr Drug Dosing 71.1 Est GFR ( Amer) 106.6 Est GFR (Non-Af Amer) 92.0 BUN/Creatinine Ratio 13.6 Glucose 86 Calcium 7.6 L Magnesium 1.7 L Total Bilirubin 0.6 D AST 21 ALT 15 Alkaline Phosphatase 47 Total Protein 5.2 L Albumin 2.3 L Globulin 2.9 Albumin/Globulin Ratio 0.8 L Urine Color Urine Appearance Urine pH Ur Specific [place] Urine Protein Urine Glucose (UA) Urine Ketones Urine Blood Urine Nitrite Urine Bilirubin Urine Urobilinogen Ur Leukocyte Esterase Urine WBC (Auto) Urine RBC (Auto) U Hyaline Cast (Auto) U Epithel Cells (Auto) Urine Bacteria (Auto) Urine Yeast Medications Administered Current Inpatient Medications Acetaminophen (Tylenol) 1,000 mg PO TID [facility] Stop: 05/05/18 08:59 Last Admin: 04/07/18 08:36 Dose: Not Given Al Hydrox/Mg Hydrox/Simethicone (Maalox) 15 ml PO Q4H PRN PRN Reason: Dyspepsia Stop: 03/12/19 21:26 Cephalexin HCl (Keflex) 500 mg PO BID [facility] Stop: 04/11/18 11:29 Last Admin: 04/07/18 08:36 Dose: 500 mg Dicyclomine HCl (Bentyl) 10 mg PO BID [facility] Stop: 05/04/18 21:26 Last Admin: 04/07/18 08:35 Dose: 10 mg Diltiazem HCl (Cardizem Cd) 300 mg PO QAM [facility] Stop: 05/05/18 08:59 Last Admin: 04/07/18 08:35 Dose: 300 mg Estrogens Conjugated (Premarin) 0.3 mg PO SuTuFr@2100 [facility] Stop: 05/06/18 08:59 Last Admin: 04/06/18 20:59 Dose: 0.3 mg Pantoprazole Sodium 40 mg/ (Dextrose) 100 mls @ 20 mls/hr IV Q5H [facility] Stop: 05/05/18 01:14 Last Admin: 04/07/18 07:47 Dose: 20 mls/hr Sodium Chloride (Nss 250ml) 250 mls @ 15 mls/hr IV .[id number] PRN PRN Reason: For Transfusion Stop: 05/05/18 19:12 Indapamide (Lozol) 1.25 mg PO SuTuWeFrSa@0900 [facility] Stop: 05/06/18 08:59 Last Admin: 04/06/18 08:54 Dose: Not Given Levothyroxine Sodium (Synthroid) 100 mcg PO DAILYBB [facility] Stop: 05/05/18 06:29 Last Admin: 04/07/18 05:53 Dose: 100 mcg Magnesium Hydroxide (Milk Of Magnesia) 30 ml PO Q12H PRN PRN Reason: Constipation Stop: 05/04/18 21:26 Miscellaneous (Order Awaiting Action) 1 ea N/A QS [facility] Stop: 05/05/18 00:00 Last Admin: 04/06/18 23:21 Dose: Not Given Multivitamins (Multivitamin Tab) 1 tab PO QAM [facility] Stop: 05/05/18 08:59 Last Admin: 04/07/18 08:35 Dose: 1 tab Ondansetron HCl (Zofran) 4 mg IV Q6H PRN PRN Reason: NAUSEA/VOMITING Stop: 05/04/18 21:26 Polyethylene Glycol (Miralax Powder Packet) 17 gm PO DAILY PRN PRN Reason: Constipation Stop: 05/04/18 21:26 Potassium Chloride (Klor-Con M20) 20 meq PO QAM [facility] Stop: 05/05/18 08:59 Last Admin: 04/07/18 08:35 Dose: 20 meq Saccharomyces Boulardii (Florastor) 250 mg PO BID [facility] Stop: 05/04/18 21:26 Last Admin: 04/07/18 08:35 Dose: 250 mg Resident Activity Tracking Resident Involvement: Resident Care Provided Care Provided: Adult Hospital Medicine
[2018-04-07] MEDS: RESTASIS~ORDER AWAITING ACTION SCH ×3 (12:37→23:08)
--- NOTE | 2018-04-07 18:32 | Progress Note ---
DATE: 04/07/2018 SUBJECTIVE: The patient reports more energy today and she has walked around the nursing station loop 3 times today. She is reporting no abdominal pain. She is still having bowel movements which are dark, but nonbloody. Her hemoglobin has remained stable today at 9.7 after 2 units of red blood cells. Urine is growing budding yeast. She has had no syncopal episodes. Of note is that her sodium and potassium, which are chronically low remain low today with a sodium of 129, potassium 3.4, albumin is also slightly low at 2.3. OBJECTIVE: EXTREMITIES: Show sequential compression devices on and the knee is wrapped. ABDOMEN: Nontender. IMPRESSION: The patient's duodenal ulcers appear to be healing with no further bleeding. She will continue on a regular bland diet. We can switch her to oral Protonix which she should stay on for the next 2 months. I switched her from Keflex to Diflucan for yeast urinary tract infection.
[2018-04-08] MEDS: PANTOprazole 40 MG in DEXTROSE 5% 100 ML IV SCH (03:28)
[2018-04-08] MEDS: LEVOTHYROXINE SODIUM 100 MCG TABLET PO SCH (06:18)
[2018-04-08] MEDS: RESTASIS~ORDER AWAITING ACTION SCH (08:06)
[2018-04-08] MEDS: POTASSIUM CHLORIDE 20 MEQ TABCR PO SCH (08:08)
[2018-04-08] MEDS: SACCHAROMYCES BOULARDII 250 MG CAP PO SCH (08:08)
[2018-04-08] MEDS: MULTIVITAMIN TAB PO SCH (08:08)
[2018-04-08] MEDS: dilTIAZem HCL 300 MG CAPCR PO SCH (08:09)
[2018-04-08] MEDS: DICYCLOMINE HCL 10 MG CAP PO SCH (08:09)
[2018-04-08] MEDS: ACETAMINOPHEN 500 MG TAB PO SCH ×2 (08:12→13:43)
[2018-04-08] MEDS ORDERED: FLUCONAZOLE 100 MG TAB PO SCH (09:00)
[2018-04-08] MEDS ORDERED: PANTOprazole 40 MG TAB PO SCH (09:00)
--- NOTE | 2018-04-08 13:33 | Discharge Summary ---
Date of Service April 08, 2018 Admission HPI Per Admitting Provider The patient is an 82-year-old female who underwent an uneventful right total knee arthroplasty by Dr. Mendez during admission from 03/18-03/20. She was discharged to home, and was undergoing physical therapy as directed. She reports that she had not yet regained her strength after surgery, and when she awoke this morning, she noted her heart rate was elevated and when she checked her heart rate was 137. Later on in the day, she checked her heart rate again it was down to 90, but she also noted that her systolic and diastolic blood pressures were both dropping as well. She also later became short of breath, and with the prescription his symptoms, presented to the emergency department for assessment. Nurses during triage at the emergency department noted that her blood pressure was 50/30, she was brought rapidly back into the emergency department, received aggressive fluid rehydration, and blood pressure rebounded into the upper 90s and low 100s systolic. She did however while in the emergency department, continued to show orthostatic symptoms. Principal Diagnosis duodenal ulcers Discharge Exam Constitutional WD/WN, vitals as above Eyes PERRL, conjunctivae normal, anicteric sclerae ENMT external ear and nose normal, oropharynx normal Respiratory normal respiratory effort, lungs clear to auscultation Cardiovascular RRR, no murmur, no edema Gastrointestinal (Abdomen) normal bowel sounds, soft, nontender, no hepatosplenomegaly Skin no rashes, warm and dry Psychiatric A+Ox3, euthymic affect Discharge Data Allergies Allergy/AdvReac Type Severity Reaction Status Date / Time pollen extracts Allergy Intermediate ITCHY Verified 04/04/18 17:12 EYES, SNEEZING, CONGESTION Sulfa (Sulfonamide Allergy Unknown CAN'T Verified 04/04/18 17:12 Antibiotics) REMEMBER guaifenesin AdvReac Intermediate nausea Verified 04/04/18 17:12 hydrocodone AdvReac Intermediate nausea Verified 04/04/18 17:12 metronidazole AdvReac Intermediate nausea Verified 04/04/18 17:12 phenylephrine AdvReac Intermediate nausea Verified 04/04/18 17:12 tramadol AdvReac Intermediate Nausea Verified 04/04/18 17:12 Consultations 04/04/18 18:47 ED Decision to Admit Stat 04/04/18 21:27 Consult Case Management - Discharge Planning Routine 04/04/18 22:40 Consult Gastroenterology Routine Procedures Performed Operation Date: 04/05/18 09:20 Actual Procedures p EGD Hemostasis - Fernando Turner Ordered Studies 04/04/18 17:50 CT abd pelvis IV con only Stat CT angio chest PE protocol Stat Hospital Course (1) Generalized weakness: 82 y/o F with PMH HTN, hypothyroid, GERD, DDD, Osteoporosis presented to [facility] on 04/05 with complaints of orthostatic sxs. Pt underwent an uneventful right total knee arthroplasty by Dr. Mendez during admission from 03/18-03/20. She was discharged to home, and was undergoing physical therapy as directed. Noted that her systolic and diastolic blood pressures were both dropping and had elevated HR 137. She also later became short of breath, and presented to the emergency department for assessment. In ER BP was 50/30, and she was brought rapidly back with aggressive IVF, but continued to show orthostatic symptoms and was admitted. The following is her medical management during her stay here. Pt was noted to have Acute blood loss Anemia. Lowest hgb was 7 and Last Hgb 9.7 on d/c. There were reports of black stools likely 2/2 upper GI bleed from peptic ulcer from ASA use. Pt given Protonix drip and GI consulted: EGD showed multiple non- bleeding duodenal ulcers with a visible vessel. Clip was placed. Pt was advanced to regular bland diet s/p EGD, and eventually switched her to oral Protonix, which she will continue for 2 months. Pt recommended to have 2 weeks of a bland diet and outpt f/u in [address] Turner (GI). Pt's near syncope/ generalized weakness was likely from GI bleeding and hypovolemia 2/2 decreased oral intake for both liquids and solids associated with relatively decreased activity. Her home antihypertensives including indapamide and lisinopril were held but she continued diltiazem. PT/OT was ordered to help with ambulation 2/2 weakness. Pt's hypothyroidism was managed with home levothyroxine sodium at 100 mcg p.o. daily. Pt also noted to have acute UTI here, dysuria resolving. Initially placed on keflex 250 BID, later budding yeast grew and pt given one time diclofenac. DVT Prophylaxis with SCDs, Ambulation. Pt will continue this along with STEPHANY stockings. Pt will no longer take ASA. At time of d/c, pt has no other acute concerns or complaints. Total Time Total Time Spent Total Time Spent (In Minutes): 30 min Discharge Plan Discharge Items Patient Disposition: Home - Self-Care Reason For Visit: NEAR SYNCOPE, ORTHOSTATIC HYPOTENSION Discharge Diagnosis: duodenal ulcers Discharge Goals: Improve function Activity: Per 'Additional Instructions' section Non-emergency contact: Primary Care Provider Call non-emergency contact if: your symptoms worsen and your pain is not controlled Follow-up/Referrals: Hossein Choudhury MD [Primary Care Provider] - 04/12/18 1:00 pm (Please, follow up at Dr. Choudhury's office with drug safety assistant, Clarissa Simmons PA-C, on ThursdayApril 12 at 1:00 pm. *If you need to change this appointment, call the office at [phone].) Fernando Turner [Physician] - 05/26/18 10:20 am (Please, follow up with Dr. Turner on ThursdayMay 26 at 10:20 am. *This office is located at [address] [place] [address] - next to [facility]. If you need to change this appointment, call the office at [phone].) Diet: Heart Healthy Add Provider Instructions: You were admitted for syncopal symptoms and were found to have duodenal ulcers on EGD. Please follow the below instructions on d/c: -Continue to wear STEPHANY stockings, compression socks, ambulation to help prevent clots in your legs -follow up with your PCP within one week of discharge -continue to take oral protonix for 2 months after discharge -follow up with Dr. Turner (GI) in one month -continue bland diet for 2 weeks after discharge -continue to work with home PT Prescriptions: New pantoprazole 40 mg Tablet,Delayed Release (Dr/Ec) 40 mg PO BID Qty: 30 RF: 1 Continue levothyroxine [Synthroid] 100 mcg Tablet 100 mcg PO QAM RF: 0 potassium chloride [Klor-Con M20] 20 mEq Tablet,Er Particles/Crystals 20 meq PO QAM RF: 0 indapamide 1.25 mg Tablet 1.25 mg PO 5XWK RF: 0 lisinopril 5 mg Tablet 10 mg PO QAM RF: 0 dicyclomine 10 mg Capsule 10 mg PO BID RF: 0 conjugated estrogens [Premarin] 0.3 mg Tablet 0.3 mg PO 3XWK RF: 0 diltiazem HCl 300 mg Tablet Extended Release 24 Hr 300 mg PO QAM RF: 0 cyclosporine [Restasis] 0.05 % Dropperette 1 drp OPHTHALMIC (EYE) Q12H RF: 0 multivitamin Tablet 1 tab PO QAM RF: 0 lactobacillus combination no.4 [Probiotic] 3 billion cell Capsule 3,000 mmu cells PO DAILY RF: 0 cranberry 1 dose PO DAILY RF: 0 acetaminophen [Pain Reliever] 500 mg tablet 1,000 mg PO Q6 RF: 0 Saccharomyces boulardii [Florastor] 250 mg capsule 250 mg PO BID Qty: 20 RF: 0 Discontinued aspirin [Ecotrin Low Strength] 81 mg Tablet,Delayed Release (Dr/Ec) 81 mg PO BID 45 Days Qty: 90 RF: 0 Stand-Alone Forms: [facility] Discharge Orders: Discharge Order (Routine); Ordered 04/05/18 Ordered By: Fernando Turner Admission Data Admit Date/Time: 04/04/18 20:30 Attending Provider: Jigna Moss Admit Provider: Kaushik Vale Primary Care Provider: Hossein Choudhury Other Providers: Kaushik Vale ; Ubaldo Vale ; Fernando Turner Service: Telemetry Other Interventions: Discharge Summary Assessment (RN) Last Done: 04/08/18 13:45 DC Date/Time DO NOT enter until pt leaves facility: 04/08/18 14:27 Supervising Physician Co-Signing Physician Notes Resident Physician Supervision Note: I independently interviewed and examined the patient and verified the fajardo history and physical, reviewed labs and image studies, discussed the case with the resident Dr. Arreola and agree with the findings and care plan. Time spent in discharge 35 min Resident Activity Tracking Resident Involvement: Resident Care Provided Care Provided: Adult Hospital Medicine
== END 2018-04-08 14:27 | disposition home or self-care (01) ==
LOC: ED 16:06 → 2S 20:30 → SUATTDRO 20:30 → 2S 20:57 → 2E 04-05 16:34